=== PATIENT | female | born 1965 | race Caucasian/White ===

== ENCOUNTER 2017-02-25 12:56 | Inpatient (IN) | payer MEDICARE ==
[~2017-02-25] VITALS: Ht 157.5 cm; Wt 92.5 kg
--- NOTE | ~2017-02-25 | TEE ---
PATIENT:EMERSON TUTTLE MEDICAL RECORD: [id number] LOCATION:[place] [address] AGE OF PATIENT: 51 ADMISSION DATE: 02/26/17 SEX: F REFERRING PHYSICIAN: INTERPRETING PHYSICIAN: LUIS F PEÑA MD TRANSESOPHAGEAL ECHOCARDIOGRAM RICHARD CHARGE INDICATIONS: PREMEDICATIONS: PATIENT'S RESPONSE PROCEDURE DOPPLER MEASUREMENTS: LVIT LA PA RA LVOT RVOT Asc. Ao AV Gradient Peak AV Mean AV Area MV Gradient Peak MV Mean MV Area INTERPRETATION: Doppler: 2-D: COLOR FLOW DOPPLER NORMAL SALINE STUDY: MISCELLANOUS: DIAGNOSIS: PLAN: Batteryman:4 Dr. Peña Barrer And Tacker: 2 CAROLINE PETE COMMENTS: MARIAA PATIENT DATE OF SERVICE: 02/27/2017 PROCEDURE: Transesophageal echocardiogram. FINDINGS: 1. The left atrium is normal size, normal function. 2. The left ventricle is hyperdynamic. He has ejection fraction of 70% to 75%. 3. The right ventricular structures appeared to be normal size, normal function. TRANSESOPHAGEAL ECHOCARDIOGRAM REPORT [id number] EMERSON TUTTLE 4. The right atrium is normal size, normal function. 5. The aortic valve is trileaflet structure and normal. 6. The pulmonic valve is demonstrated to be normal in structure and function. 7. Left ventricular outflow tract is normal function. 8. The pericardium demonstrates no evidence of pericardial effusion. It is very distinct either moderate or band or possibly a pacer artifact in the RV. CONCLUSION: Normal transesophageal echocardiogram. TRANSINT:[id number] Voice Confirmation ID: [id number] DOCUMENT ID: [id number] 03/13/2017 Edited to correct date of service, LUIS F Elliott MD CC: [id number] DICTATION DATE: 03/03/17 08 ENTERPRISE APPLICATION DEVELOPER: 03/03/[address] [facility] [address] [place] [address]
--- NOTE | ~2017-02-25 | HEMODYNAMI ---
PATIENT:EMERSON TUTTLE MEDICAL RECORD: [id number] : 65 [facility] [id number] ADMISSION DATE: 02/25/17 Generatedon:02/26/201710:20 Patient name: EMERSON TUTTLE Patient #: [id number] SSN: : 1965 Date of study: 02/26/2017 Page: Of Hemodynamic Procedure Report Patient Data Patient Demographics Procedure consent was obtained First Name: EMERSON Gender: Female Last Name: MARRY : 1965 [facility] Initial: K Age: 51 year(s) Patient #: [id number] Race: Additional ID: [id number] Contact details [address]: [address] [place] [address] State: [place] City: [place] Zip code: [address] Past Medical History Allergies: No known allergies Admission Admission Data Admission Date: 02/25/2017 Admission Time: 16:13 Room #: 2119 Lab Results Lab Result Date: 02/25/2017 Lab Result Time: 20:35 Biochemistry Name Units Result Min Max BUN mg/dl 16 --(---*)-- 7 18 Creatinine mg/dl 0.8 --(-*--)-- 0.6 1.3 CBC Name Units Result Min Max Hematocrit % 38.5 *-(----)-- 42 54 Hemoglobin g/dl 13.1 -*(----)-- 13.5 17.5 Procedure Procedure Types Cath Procedure Diagnostic Procedure LHC LHC w/Coronaries Miscellaneous Procedures Moderate Sedation up to 30 minutes Procedure Description Procedure Date Procedure Date: 02/26/2017 Procedure Start Time: 9:54 Procedure End Time: 10:20 Procedure Staff Name Function Bay Sal MD Performing Physician Topher Contreras RT Scrub Jocelyn Pastrana RT Scrub Yesenia Baron RN Nurse Gareth Hardy RT Monitor Tiffanie Turcios RT Monitor Procedure Data Cath Procedure Fluoroscopy Diagnostic fluoroscopy Total fluoroscopy Time: 2.3 time: 2.3 min min Diagnostic fluoroscopy Total fluoroscopy dose: 547 dose: 547 mGy mGy Contrast Material Contrast Material Type Amount (ml) Isovue 300 39 Entry Location Entry Primary Successful Side Size Upsize Upsize Entry Closure Succes sful Closure Location (Fr) 1 (Fr) 2 (Fr) Remarks Device Remarks Femoral Right 5 Fr Exoseal artery Estimated blood loss: 5 ml Diagnostic catheters Device Type Used For End Catheter Placement Cordis 5Fr JL 4.0 Procedure Catheter (MP) Cordis 5Fr 3DRC Catheter Procedure (MP) Cordis 5Fr Pigtail LV Angiography Catheter (MP) Procedure Complications No complications Procedure Medications Medication Administration Route Dosage 0.9% NaCl I.V. 100 ml/hr Oxygen NC 3 l/min Versed I.V. 2 mg Fentanyl I.V. 25 mcg Versed I.V. 1 mg Fentanyl I.V. 50 mcg Hemodynamics Rest HGB: 13.1 (g/dl) Heart Rate: 87 (bpm) Pressure Samples Time Site Value (mmHg) Purpose Heart Use Rate(bpm) 10:11 LV 144/33,36 EDP 85 10:12 LV 148/17,23 EDP 85 10:13 AO 128/73(99) Pullback 86 10:13 LV 126/9,10 Pullback 86 Gradients Valve Time Site 1 Site 2 Mean SEP/DFP Peak To Heart Use (mmHg) (sec/min) Peak Rate (mmHg) (bpm) Aortic 10:13 LV AO 0 86 126/9,10 128/73(99) Calculations Valve P-P Mean Valve Index Valve Source Name Gradient Area Flow (cm2) Aortic 0 0 Snapshots Pre Cath Intra NCS Post Cath Vital Signs Time Heart Resp SPO2 etCO2 PC4cqha NIBP (mmHg) Rhythm Pain Sedation Rate (ipm) (%) (mmHg) (mmHg) Status Level (bpm) 9:39:31 87 17 100 0 0 134/76(112) NSR 0 (11) 10(A) , No pain 9:43:43 87 15 100 0 0 135/69(96) NSR 0 (11) 10(A) , No pain 9:47:53 86 16 100 0 0 127/74(100) NSR 0 (11) 10(A) , No pain 9:52:00 86 19 97 0 0 129/73(104) NSR 0 (11) 9(A) , No pain 9:56:10 90 16 98 0 0 126/72(94) NSR 0 (11) 9(A) , No pain 10:00:16 84 17 98 0 0 119/78(92) NSR 0 (11) 9(A) , No pain 10:04:18 86 15 96 0 0 129/83(117) NSR 0 (11) 9(A) , No pain 10:08:26 83 17 98 0 0 129/77(105) NSR 0 (11) 9(A) , No pain 10:12:46 84 16 97 0 0 125/74(98) NSR 0 (11) 9(A) , No pain 10:16:54 83 20 99 0 0 124/72(102) NSR 0 (11) 10(A) , No pain Medications Time Medication Route Dose Verified Delivered Reason Notes Effective ness by by 9:37:43 0.9% NaCl I.V. 100 Yesenia Yesenia used for ml/hr Loraine Loraine residence leasing agent RN 9:37:52 Oxygen NC 3 Yesenia Yesenia used for l/min Loraine Loraine residence leasing agent RN 9:48:01 Versed I.V. 2 mg Bay Yesenia for [address] Loraine sedation RN 9:48:20 Fentanyl I.V. 25 Bay Yesenia for mcg [address] Loraine sedation RN 9:54:03 Versed I.V. 1 mg Bay Yesenia for [address] Loraine sedation RN 10:05:18 Fentanyl I.V. 50 Bay Yesneia for mcg [address] Loraine sedation drugless doctor Log Time Note 9:21:21 Topher VANCE(R) sent for patient. Start room use. 9:21:26 Time tracking: Regular hours 9:21:34 Plan of Care:Hemodynamics will remain stable., Cardiac rhythm will remain stable., Comfort level will be maintained., Respiratory function will remain adequate., Patient/ family verbilizes understanding of procedure., Procedure tolerated without complication., Recovers from procedure without complications.. 9:29:20 Patient received from Med II to CCL 1 Alert and oriented. Tansferred to table in Supine position. 9:30:02 Warm blankets applied, and kade hugger turned on for patient comfort. 9:30:02 Correct patient and procedure confirmed by team. 9:30:06 Signed procedure consent form obtained from patient. 9:30:07 ECG and BP/O2 sat monitors applied to patient. 9:30:16 H&P Date Dictated: 02/25/2017 Within 30 days and on chart., H&P Addendum completed by physician on day of procedure. (MUST COMPLETE FOR ALL OUTPATIENTS). 9:30:18 Pre-procedure instructions explained to patient. 9:30:18 Pre-op teaching completed and patient verbalized understanding. 9:31:49 Family in patients room. 9:31:50 Patient NPO since Midnight. 9:34:18 Patient allergic to No known allergies 9:34:21 Is the patient allergic to Iodine/contrast media? No. 9:34:23 Is patient on blood thinner?Yes 9:34:25 ACC The patient was administered the following blood thiners within the last 24 hours: ACCPlavix 9:34:27 Patient diabetic? No. 9:34:31 Previous problem with sedation/anesthesia? No ? 9:34:32 Snore? No 9:34:33 Sleep apnea? No 9:34:34 Deviated septum? No 9:34:35 Opens mouth fully? Yes 9:34:35 Sticks out tongue? Yes 9:34:37 Airway obstruction? No ? 9:34:39 Dentures? No ? 9:35:16 Patient pain scale 0/10 ?. 9:35:22 IV patent on arrival in left hand with 0.9% NaCl at O. 9:36:14 Pre procedure: right dorsailis pedis pulse 2+ Normal; easily identifiable; not easily obliterated 9:37:43 0.9% NaCl 100 ml/hr I.V. was administered by Yesenia Baron RN; used for procedure; 9:37:52 Oxygen 3 l/min NC was administered by Yesenia Baron RN; used for procedure; 9:37:54 Vital chart was started 9:38:56 Lab Result : Creatinine 0.8 mg/dl 9:38:56 Lab Result : BUN 16 mg/dl 9:38:56 Lab Result : Hemoglobin 13.1 g/dl 9:38:56 Lab Result : Hematocrit 38.5 % 9:38:59 Lab results completed and on chart. 9:39:02 Right groin area was prepped with chlora-prep and draped in sterile fashion 9:39:02 Sharps counted by scrub and verified by R.N. 9:39:03 Alarms reviewed by R. N. 9:39:10 Use device set Femoral Dx 9:39:11 Acist Syringe opened to sterile field. 9:39:12 Bag Decanter opened to sterile field. 9:39:13 Tegaderm 4 x 4 opened to sterile field. 9:39:14 Acist Manifold opened to sterile field. 9:39:14 Acist Hand Control opened to sterile field. 9:39:15 Medline Cath Pack opened to sterile field. 9:39:16 Terumo 5Fr Algona Sheath opened to sterile field. 9:39:16 St Eduardo 260cm J .035 wire opened to sterile field. 9:39:17 Diagnostic Infinity 5Fr Multipack catheter opened to sterile field. 9:39:22 Baseline sample Acquired. 9:39:27 Rhythm: sinus rhythm 9:39:29 Full Disclosure recording started 9:42:52 Cook 4Fr Micropuncture ([id number]) opened to sterile field. 9:46:08 Physician arrived 9:46:09 --------ALL STOP TIME OUT------ 9:46:09 Final Timeout: patient, procedure, and site verified with staff and physician. All members of the team are in agreement. 9:46:11 Right groin site verified by team. 9:46:14 Physical assessment completed. ASA score P 2 - A patient with mild systemic disease as per Bay Sal MD. 9:46:16 Sedation plan: IV Moderate Sedation Versed, Fentanyl 9:48:01 Versed 2 mg I.V. was administered by Yesenia Baron RN; for sedation; 9:48:20 Fentanyl 25 mcg I.V. was administered by Yesenia Baron RN; for sedation; 9:49:57 Zero performed for pressure channel P1 9:50:00 Zero performed for pressure channel P1 9:54:03 Versed 1 mg I.V. was administered by Yesenia Baron RN; for sedation; 9:54:49 Procedure started. 9:54:52 Local anesthetic to right femoral artery with Lidocaine 2% by Bay Sal MD.INITIAL ACCESS ONLY 10:01:39 A 5 Fr sheath was inserted into the Right Femoral artery 10:01:45 A Cordis 5Fr JL 4.0 Catheter (MP) was advanced over the wire and used for Procedure. 10:03:51 LCA angiography performed. 10:05:18 Fentanyl 50 mcg I.V. was administered by Yesenia Baron RN; for sedation; 10:05:23 Catheter exchanged over wire. 10:06:51 A Cordis 5Fr 3DRC Catheter (MP) was advanced over the wire and used for Procedure. 10:09:19 Catheter exchanged over wire. 10:10:30 A Cordis 5Fr Pigtail Catheter (MP) was advanced over the wire and used for LV Angiography. 10:11:47 Zero performed for pressure channel P1 10:12:08 LV gram done using THOMPSON 10:12:10 LV hemodynamics recorded. 10:12:14 Injector settings: Ml/sec: 12, Volume: 8, 10:13:29 Catheter removed. 10:13:49 Sheath removed intact; hemostasis achieved with Exoseal to the Right Femoral artery. 10:13:57 Cordis 5Fr Exoseal opened to sterile field. 10:14:02 Procedure ended.(Physican Out) 10:14:09 Fluoroscopy time 02.30 minutes. 10:14:29 Flurop Dose total: 547 10:14:29 Fluoroscopy dose: 547 mGy 10:14:33 Contrast amount:Isovue 300 39ml. 10:14:35 Sharps counted by scrub and verified by R.N. 10:14:36 Insertion/operative site no bleeding no hematoma. 10:14:39 Post-op/insertion site Right Femoral artery dressed using a 4 x 4 and Tegaderm. 10:14:42 Post right femoral artery:stable, clean and dry 10:14:43 Post Procedure Pulses reassessed and unchanged 10:14:47 Post-procedure physical assessment completed. ASA score P 2 - A patient with mild systemic disease as per Bay Sal MD. 10:14:50 Post procedure rhythm: unchanged. 10:14:53 Estimated blood loss: 5 ml 10:14:55 Post procedure instruction explained to patient.Patient verbalizes understanding. 10:14:55 Patient needs reinforcement of post procedure teaching. 10:15:57 Procedure type changed to Cath procedure, Diagnostic procedure, LHC, LHC w/Coronaries, Miscellaneous Procedures, Moderate Sedation up to 30 minutes 10:16:02 Procedure Complication : No complications 10:16:55 Procedure and supply charges have been captured, reviewed, submitted and are correct. 10:16:57 See physician's report for complete and final results. 10:20:20 Vital chart was stopped 10:20:23 Report given to PCU. 10:20:33 Patient transfered to PCU with Bed. 10:20:35 Procedure ended. 10:20:35 Full Disclosure recording stopped 10:20:39 End room use (Document Last) Device Usage Item Name Manufacture Quantity Catalog Hospital Part Current Minimal Lot# / Number Charge Number Stock Stock Serial# Code Acist Syringe Acist 1 93752 378721 548061 935240 20 Medical Systems FidusNet Bag Decanter Microtek 1 2002S 201798 75846 447143 5 [employer] Inc. Tegaderm 4 x 3M 1 1626W 369974 671668 810081 5 4 Acist Acist 1 78068 230748 124767 946124 5 Manifold Medical Systems Inc Acist Hand Acist 1 92002 886725 055596 672374 5 Control Medical Systems Inc Medline Cath Cardinal 1 [id number] 523043 81582 621588 5 Pack Health Terumo 5Fr Terumo 1 CHW721 136439 077339 985752 [address] Eduardo 1 263906 296658 689239 866669 30 J .035 wire Diagnostic Cardinal 1 [id number] 247990 09972 263456 30 Infinity 5Fr Health Multipack catheter Cook 4Fr Cook [facility] 1 [id number] 015800 526076 811837 5 Micropuncture ([id number]) Cordis 5Fr JL Cardinal 1 328395 5 4.0 Catheter Health (MP) Cordis 5Fr Cardinal 1 434055 5 3DRC Catheter Health (MP) Cordis 5Fr Cardinal 1 008082 5 Pigtail Health Catheter (MP) Cordis 5Fr Cardinal 1 EX500 802617 327270 164095 10 [employer] Signature Audit [place] Stage Time Signature Unsigned Intra-Procedure 02/26/2017 Tiffanie 10:20:48 AM Counts RT(R) Signatures Monitor : Gareth Hardy RT Signature : Date : Time : Monitor : Tiffanie Signature : Counts RT Date : Time : [address] [place] [address]
[~2017-02-25 12:56] MED LIST: ASPIRIN81 MG PO; BRILINTA90 MG PO; CYMBALTA30 MG PO; FLAGYL500 MG PO; K-DUR20 MEQ PO; LISINOPRIL-HCTZ1 TA2; LISINOPRIL-HCTZ1 TA2 PO; LYRICA50 MG PO; NICODERM C1 PATCH .3 TRANSDERM; NORCO 10/325 TA1 TA1 PO; OMEPRAZOLE40 MG; OMEPRAZOLE40 MG PO
[2017-02-25 13:32] LABS: BASOPHILS 0.1 % (0-2); EOSINOPHILS 2.3 % (0-7); HEMATOCRIT 38.1 % (36.0-48.0); HEMOGLOBIN 13.1 g/dL (12-16); IMMATURE GRANULOCYTES 0.1 % (0-5); LYMPHOCYTES 39.5 % (15-50); MCH 29.9 pg (26.0-34.0); MCHC 34.4 g/dL (31.0-37.0); MEAN PLATELET VOLUME 9.2 fL (7.4-10.4); MONOCYTES 7.4 % (2-11); NEUTROPHILS 50.6 % (40-80); PLATELET COUNT 361 10x3/uL (130-400); RBC 4.38 10x6/uL (4.00-5.40); RDW 13.6 % (11.5-14.5); WBC 8.7 10x3/uL (4.8-10.8)
[2017-02-25 13:50] LABS: ALBUMIN 3.4 g/dL (3.4-5.0); ALKALINE PHOSPHATASE 99 U/L (46-116); ALT (SGPT) 19 U/L (10-68); BILIRUBIN - TOTAL 0.27 mg/dL (0.2-1.3); CALC OSMOLALITY 278 mosm/kg (275-300); CALCIUM 8.6 mg/dL (8.5-10.1); CARBON DIOXIDE 24.3 mmol/L (21.0-32.0); CHLORIDE - SERUM 103 mmol/L (98-107); CREATININE - SERUM 0.8 mg/dL (0.6-1.3); GLUCOSE 117 mg/dL (74-106); POTASSIUM - SERUM 3.4 mmol/L (3.5-5.1); PROTEIN - SERUM 7.1 g/dL (6.4-8.2); SODIUM 139 mmol/L (136-145); UREA NITROGEN 13 mg/dL (7-18); eGFR NON AFRICAN AMERICAN 80 mL/min (90-120)
[2017-02-25 14:03] LABS: CKMB 0.3 U/L (0.0-3.6); CREATINE KINASE 68 UL (21-215); TROPONIN-I 0.053 ng/mL (0.000-0.060)
[2017-02-25 16:49] VITALS: BP 147/85; BMI 29.3
--- NOTE | 2017-02-25 16:56 | NUR ---
PT TO ROOM ADMISSION COMPLETE. X3 FAMILY MEMBERS ARE AT BEDSIDE. PT DENIESNEEDS AT THIS TIME. PT IS NSR ON TELE 70 BPM. PIV NS FLUIDS RUNNING TO LEFT HAND WITHOUT ANY ISSUES. WILL CONT TO MONITOR
--- NOTE | 2017-02-25 18:28 | NUR ---
PT SITTING UP IN BED WATCHING TV DENIES NEEDS
[2017-02-25 19:00] VITALS: BP 147/85
--- NOTE | 2017-02-25 19:30 | NUR ---
CONSENTS SIGNED AND WITTNESSED FOR HEART CATH TO BE DONE IN AM. CONSENTS PLACED IN CHART, REMINDED PT OF NOTHING TO EAT OR DRINK AFTER MN.
[2017-02-25 20:41] LABS: BASOPHILS 0.1 % (0-2); EOSINOPHILS 2.5 % (0-7); HEMATOCRIT 38.5 % (36.0-48.0); HEMOGLOBIN 13.1 g/dL (12-16); IMMATURE GRANULOCYTES 0.2 % (0-5); LYMPHOCYTES 46.5 % (15-50); MCV 88.3 fL (80.0-100.0); MEAN PLATELET VOLUME 9.4 fL (7.4-10.4); MONOCYTES 8.6 % (2-11); NEUTROPHILS 42.1 % (40-80); PLATELET COUNT 356 10x3/uL (130-400); RBC 4.36 10x6/uL (4.00-5.40); RDW 13.6 % (11.5-14.5); WBC 9.6 10x3/uL (4.8-10.8)
[2017-02-25 20:51] LABS: CALC OSMOLALITY 278 mosm/kg (275-300); CALCIUM 8.6 mg/dL (8.5-10.1); CARBON DIOXIDE 29.3 mmol/L (21.0-32.0); CHLORIDE - SERUM 102 mmol/L (98-107); CREATININE - SERUM 0.8 mg/dL (0.6-1.3); GLUCOSE 99 mg/dL (74-106); POTASSIUM - SERUM 3.1 mmol/L (3.5-5.1); SODIUM 139 mmol/L (136-145); UREA NITROGEN 16 mg/dL (7-18); eGFR NON AFRICAN AMERICAN 80 mL/min (90-120)
[2017-02-26] VITALS (11 sets, daily range): BP systolic 91–129; BP diastolic 49–69; BMI 32.8
--- NOTE | 2017-02-26 01:50 | NUR ---
RESTING WITH EYES CLOSED, RESPERATIONS EVEN, NO S/S DISTRESS NOTED.
--- NOTE | 2017-02-26 02:53 | NUR ---
CALL LIGHT IN REACH. WILL CONTINUE WITH PLAN OF CARE. WILL CONTINUE TO MONITOR.
--- NOTE | 2017-02-26 14:01 | NUR ---
1350 PATIENT CO CHEST PAIN @ NUMBER OF 10. MONITOR SHOWS SR @ 94. NO DIAPHORESIS NOTED. PT DID NOT HAVE O2 ON. RESP WITH EASE. WARM AND DRY. DR. PEÑA NOTIFIED. AND ORDERS RECEIVED. NTG SL GIVEN. EKG DONE ORDERED. ABNORMAL EKG. DR. PEÑA CALLED AND ORDERS RECEIVED. HOUSE SUP NOTIFIED FOR CVICU BED.
--- NOTE | 2017-02-26 14:32 | NUR ---
REPORT CALLED TO Alexander CUEVA RN IN CVICU.
--- NOTE | 2017-02-26 14:50 | NUR ---
REC'D PT VIA BED FROM PCU, PT AAOX4, C/O CHEST PAIN RATED "6/10 PRESSURE ON CHEST, NITRO PATCH RELIEVED SOME PAIN." NO FAMILY PRESENT, WILL CONTINUE TO MONITOR PT.
--- NOTE | 2017-02-26 15:04 | NUR ---
TRANSFER PT TO CVICU #2 VIA BED.
[2017-02-26 15:13] LABS: HEMATOCRIT 35.2 % (36.0-48.0); HEMOGLOBIN 11.8 g/dL (12-16); MCH 29.6 pg (26.0-34.0); MCHC 33.5 g/dL (31.0-37.0); MCV 88.4 fL (80.0-100.0); MEAN PLATELET VOLUME 9.3 fL (7.4-10.4); RBC 3.98 10x6/uL (4.00-5.40); RDW 13.9 % (11.5-14.5); WBC 8.1 10x3/uL (4.8-10.8)
[2017-02-26 15:22] LABS: APTT 30.8 SECONDS (22.8-39.4); INR 1.02 (0.85-1.17); PROTIME 13.3 SECONDS (11.6-15.0)
[2017-02-26 15:37] LABS: CKMB 0.3 U/L (0.0-3.6); CREATINE KINASE 56 UL (21-215); TROPONIN-I 0.035 ng/mL (0.000-0.060)
--- NOTE | 2017-02-26 16:18 | NUR ---
DR. LEROY AT THE BEDSIDE SPEAKING WITH PT AND PTS FAMILY, ALL QUESTIONS ANSWERED, VSS, WILL CONTINUE TO MONITOR PT.
[2017-02-26 17:11] LABS: HEMOGLOBIN A1C 5.8 % (4.8-6.0)
[2017-02-26 17:46] LABS: ALBUMIN 3.1 g/dL (3.4-5.0); ALKALINE PHOSPHATASE 91 U/L (46-116); ALT (SGPT) 18 U/L (10-68); BILIRUBIN - TOTAL 0.23 mg/dL (0.2-1.3); CALC OSMOLALITY 276 mosm/kg (275-300); CALCIUM 8.2 mg/dL (8.5-10.1); CHLORIDE - SERUM 105 mmol/L (98-107); CHOLESTEROL, TOTAL 284 mg/dL (0-200); CREATININE - SERUM 0.7 mg/dL (0.6-1.3); GLUCOSE 118 mg/dL (74-106); PHOSPHOROUS 4.1 mg/dL (2.5-4.9); POTASSIUM - SERUM 3.7 mmol/L (3.5-5.1); PROTEIN - SERUM 6.4 g/dL (6.4-8.2); SODIUM 138 mmol/L (136-145); T4 THYROXIN - FREE 0.81 ng/dL (0.76-1.46); THYROID STIMULATING HORMONE 1.02 uIU/mL (0.36-3.74); UREA NITROGEN 12 mg/dL (7-18); URIC ACID 3.8 mg/dL (2.6-7.2); eGFR NON AFRICAN AMERICAN > 90 mL/min (90-120)
[2017-02-26 17:53] LABS: PLT FUNCT.(P2Y12) PLAVIX 311 PRU (194-418)
--- NOTE | 2017-02-26 19:08 | NUR ---
DR. LEROY CALLED, ORDERS RECEIVED TO D/C HEPARIN GTT AT 0300.
--- NOTE | 2017-02-26 19:42 | NUR ---
REPORT RECIEVED. ASSESSMENT COMPLETE PER FLOW SHEET. VSS. PT AWAKE ALERT ORIENTED X3 DENIES CP OR GENERALIZED PAIN. GIVEN A COKE PER REQUEST. DENIES FURTHER NEEDS. O2 VIA NC 2L O2 SAT 98% RR 16 NON LABORED BILAT LUNGS CLEAR. HEART S1S2 HR 74 NSR. BP 102/54. BS ACTIVE X4. ABD SOFT NON TENDER. R GROIN DRSG CDI. NO HEMATOMA PRESENT. BILAT PEDAL PULSES PALP +2 BILAT RADIAL PULSES PALP +2. DENEIS NEEDS. VSS. WILL CONTINUE ALEXI ONITOR
[2017-02-26 20:01] LABS: COLD SCREEN @ 4 DEGREES NEGATIVE (NEGATIVE); COLD SCREEN ROOM TEMP NEGATIVE (NEGATIVE)
--- NOTE | 2017-02-26 21:00 | NUR ---
FAMILY AT BEDSIDE. GIVEN UPDATE.
[2017-02-26 22:09] LABS: CKMB 0.2 U/L (0.0-3.6); CREATINE KINASE 53 UL (21-215)
--- NOTE | 2017-02-26 23:20 | NUR ---
REASSESSMENT COMPLETE PER FLOW SHEET. VSS. PT SLEEPING COMFORTABLY WILL CONTINUE TO MONITOR
[2017-02-27] VITALS (41 sets, daily range): BP systolic 95–139; BP diastolic 50–72; Ht 157.5 cm; Wt 92.5 kg
--- NOTE | 2017-02-27 01:16 | NUR ---
OOB TO BR 200 CC ARAM URINE NOTED. VSS WILL CONTNIUE TO MONITOR
[2017-02-27 03:11] LABS: HEMATOCRIT 33.8 % (36.0-48.0); HEMOGLOBIN 11.3 g/dL (12-16); MCH 29.7 pg (26.0-34.0); MCHC 33.4 g/dL (31.0-37.0); MCV 88.9 fL (80.0-100.0); MEAN PLATELET VOLUME 9.4 fL (7.4-10.4); RBC 3.8 10x6/uL (4.00-5.40); RDW 13.9 % (11.5-14.5); WBC 8.3 10x3/uL (4.8-10.8)
--- NOTE | 2017-02-27 03:15 | NUR ---
REASSESSMENT COMPLETE PER FLOW SHEET. VSS. NO NEW CHANGES. WILL CONTINUE TO MONITOR
[2017-02-27 03:37] LABS: CREATINE KINASE 48 UL (21-215); TROPONIN-I 0.023 ng/mL (0.000-0.060)
--- NOTE | 2017-02-27 05:00 | NUR ---
COMPLETE BB LINEN CHANGE ADM AND PREPPED.
[2017-02-27 05:59] LABS: APPEARANCE CLEAR (CLEAR); BILIRUBIN NEGATIVE (NEGATIVE); COLOR YELLOW (YELLOW); GLUCOSE NEGATIVE (NEGATIVE); KETONE NEGATIVE (NEGATIVE); LEUKOCYTE ESTERASE NEGATIVE (NEGATIVE); NITRITE NEGATIVE (NEGATIVE); PROTEIN NEGATIVE (NEGATIVE); SPECIFIC GRAVITY 1.015 (1.005-1.020); UROBILINOGEN NORMAL (NORMAL)
--- NOTE | 2017-02-27 06:35 | NUR ---
DR QUINTANA AT BEDSIDE. VSS TO OR
--- NOTE | 2017-02-27 07:00 | NUR ---
PT NOTED TO BE GONE TO OR.
--- NOTE | 2017-02-27 08:00 | NUR ---
PERIPHERAL PULSE NOT CHECKED DUE TO PT BEING IN OR.
[2017-02-27 08:23] LABS: PLT FUNCT.(P2Y12) PLAVIX 325 PRU (194-418)
[2017-02-27 10:18] LABS: HEPATITIS C ANTIBODY <0.1 (0.0-0.9)
[2017-02-27 14:33] LABS: HEMATOCRIT 29.5 % (36.0-48.0); HEMOGLOBIN 10.1 g/dL (12-16); MCHC 34.2 g/dL (31.0-37.0); MCV 87.5 fL (80.0-100.0); MEAN PLATELET VOLUME 9.5 fL (7.4-10.4); RBC 3.37 10x6/uL (4.00-5.40); RDW 13.8 % (11.5-14.5)
[2017-02-27 14:51] LABS: PROTIME 15.5 SECONDS (11.6-15.0)
--- NOTE | 2017-02-27 14:55 | NUR ---
RECEIVED TO ROOM CV05 VIA BED WITH HEART TEAM AT BEDSIDE. PLACED ON AGRICULTURAL PILOT.
[2017-02-27 14:59] LABS: CALC OSMOLALITY 290 mosm/kg (275-300); CALCIUM 7.3 mg/dL (8.5-10.1); CARBON DIOXIDE 24.6 mmol/L (21.0-32.0); CHLORIDE - SERUM 110 mmol/L (98-107); CREATININE - SERUM 0.7 mg/dL (0.6-1.3); GLUCOSE 153 mg/dL (74-106); POTASSIUM - SERUM 3.9 mmol/L (3.5-5.1); SODIUM 145 mmol/L (136-145); UREA NITROGEN 11 mg/dL (7-18); eGFR NON AFRICAN AMERICAN > 90 mL/min (90-120)
[2017-02-27 15:04] LABS: APTT 29.7 SECONDS (22.8-39.4); INR 1.24 (0.85-1.17)
--- NOTE | 2017-02-27 15:45 | NUR ---
DR. LEROY UPDATING FAMILY AT BEDSIDE. ALL CURRENT QUESTIONS ANSWERED.
--- NOTE | 2017-02-27 17:40 | NUR ---
VENT CHANGES PER R.T.
--- NOTE | 2017-02-27 18:53 | NUR ---
UPDATE GIVEN TO DR. LEROY. NO CHANGES TO REPORT AT THIS TIME.
--- NOTE | 2017-02-27 19:05 | NUR ---
RECEIVED CARE OF PT, ASSESSMENT PER FLOWSHEET. PT AROUSES TO VOICE, FOLLOWS COMMANDS, ON 40% FIO2 SIMV SETTING ON VENT, 7.0 ETT, 21 AT LIP, OGT TO LIWS WITH YELLOW LIQUID IN TUBING, PLACEMENT VERIFIED WITH AUSCULTATION OF SMALL AIR BOLUS, CRACKLES AUSCULTATED BILATERALLY WITH DIM BASES, HR PACED ON CM AT A RATE OF 100, TPM WIRES SECURED, MIDSTERNAL AND SUBSTERNAL DRESSINGS CDI, CT X 3 TO 20 OF SXN, NO AIR LEAKS NOTED, BINDER NOTED TO BE IN PLACE. PPP, ALL LINES FLUSHED AND ZEROED, GTT'S PER FLOWSHEET, CRITICORE GERARDO PATENT WITH ARAM URINE IN TUBING, RT LEG WRAPPED IN COBAN FROM GROIN TO ANKLE WITH DINA X 2 TO BULB SUCTION. PT POSITIONED FOR COMFORT, ORAL CARE PROVIDED, WILL MONITOR 1:1.
--- NOTE | 2017-02-27 21:09 | NUR ---
PT FATHER CALLED, PASSWORD PROVIDED, UPDATE GIVEN, ALL QUESTIONS ANSWERED.
--- NOTE | 2017-02-27 21:10 | NUR ---
VENT CHANGED TO CPAP SETTING PER RT, PT TOLERATED WITHOUT DIFFICULTY, BREATHING EVEN AND UNLABORED.
--- NOTE | 2017-02-27 21:55 | NUR ---
PT EXTUBATED TO 4L NC, OGT D/C'D WITH TIP INTACT, PT TOLERATED WELL, VSS. 97% ON 4L NC.
--- NOTE | 2017-02-27 23:10 | NUR ---
DR LEROY CALLED REGARDING CHANGE IN PT STATUS, NOTIFIED REGARDING SMALL AIR LEAK TO POST CT AND OCC PVC'S ON CM, NO ORDERS RECEIVED AT THIS TIME.
[2017-02-28] VITALS (92 sets, daily range): BP systolic 94–131; BP diastolic 42–86
--- NOTE | 2017-02-28 01:10 | NUR ---
REPOSITIONED PT FOR COMFORT SUPPORTED WITH PILLOWS, PULLING AROUND 750 ON IS WITH GOOD INSPIRATORY EFFORT, PRODUCTIVE COUGH NOTED, SPUTUM NOT SEEN, VSS, CONT 1:1 CARE.
--- NOTE | 2017-02-28 03:00 | NUR ---
REASSESSMENT PER FLOWSHEET, PT POSITIONED FOR COMFORT, PULLING AROUND 500 ON IS WITH GOOD INSPIRATORY EFFORT-WILL CONT TO ENCOURAGE, CONT 1:1 CARE.
--- NOTE | 2017-02-28 05:50 | NUR ---
NO VISITORS PRESENT AT THIS TIME, CONT 1:1 CARE.
[2017-02-28 06:17] LABS: HEMATOCRIT 25.1 % (36.0-48.0); HEMOGLOBIN 8.6 g/dL (12-16); MCH 30.1 pg (26.0-34.0); MCHC 34.3 g/dL (31.0-37.0); MCV 87.8 fL (80.0-100.0); MEAN PLATELET VOLUME 9.7 fL (7.4-10.4); RBC 2.86 10x6/uL (4.00-5.40); RDW 13.8 % (11.5-14.5); WBC 16.7 10x3/uL (4.8-10.8)
[2017-02-28 06:28] LABS: ALBUMIN 2.6 g/dL (3.4-5.0); ALKALINE PHOSPHATASE 56 U/L (46-116); CALC OSMOLALITY 270 mosm/kg (275-300); CARBON DIOXIDE 25.1 mmol/L (21.0-32.0); CHLORIDE - SERUM 102 mmol/L (98-107); CREATININE - SERUM 0.6 mg/dL (0.6-1.3); GLUCOSE 127 mg/dL (74-106); POTASSIUM - SERUM 4.3 mmol/L (3.5-5.1); SODIUM 135 mmol/L (136-145); UREA NITROGEN 11 mg/dL (7-18); eGFR NON AFRICAN AMERICAN > 90 mL/min (90-120)
[2017-02-28 06:30] LABS: ALT (SGPT) 47 U/L (10-68)
[2017-02-28 06:31] LABS: CALCIUM 6.7 mg/dL (8.5-10.1)
--- NOTE | 2017-02-28 07:32 | NUR ---
DR LEROY CALLED REGARDING DECREASED BP, ABG RESULTS REVIEWED, ORDERS RECEIVED.
--- NOTE | 2017-02-28 08:50 | NUR ---
RIGHT LEG AND PACEMAKER DRESSINGS CHANGED.
--- NOTE | 2017-02-28 11:40 | NUR ---
DR. LEROY AT BEDSIDE. PACEMAKER ADJUSTED TO VVI 60. ABG OBTAINED PER R.T.
--- NOTE | 2017-02-28 12:16 | NUR ---
PRBC INFUSION STARTED. PT INSTRUCTED ON S/SX OF TRANSFUSION REACTION TO REPORT. TOLERATING WELL AT THIS TIME.
--- NOTE | 2017-02-28 12:51 | OP ---
PATIENT NAME: EMERSON TUTTLE MEDICAL RECORD: [id number] :65 LOCATION:[facility] ADMISSION DATE:02/26/17 SURGEON: DAVID LEROY MD DATE OF OPERATION: 02/27/2017 SURGEON: David Leroy MD. ANESTHESIA: General endotracheal, Dr. Velarde. OPERATIONS PERFORMED: Aortocoronary artery bypass utilizing left internal thoracic, left anterior descending, reverse saphenous vein segment to the first diagonal and reverse saphenous vein segment to the distal circumflex coronary artery. PREOPERATIVE DIAGNOSES: Intermediate coronary syndrome, severe occlusive coronary artery disease. POSTOPERATIVE DIAGNOSES: Intermediate coronary syndrome, severe occlusive coronary artery disease. INDICATION FOR OPERATION: Unstable angina. FINDINGS OF THE OPERATION: The left internal thoracic and greater saphenous vein were good conduits for grafting. The target vessels were of adequate caliber, although diffusely diseased. ESTIMATED BLOOD LOSS: Cell Saver was used. DESCRIPTION OF PROCEDURE: After informed consent, adequate preoperative medication and evaluation, the patient was brought to the operating room, placed on the table in the supine position. After induction of general endotracheal anesthesia and application of appropriate monitoring devices, the chest, neck, abdomen, and both legs were prepped and draped in a sterile field utilizing Betadine scrub, alcohol, and Betadine solution. A Betadine-impregnated drape was also used. The greater saphenous vein was removed from the right thigh and prepared for reverse saphenous vein grafting. Leg was closed over drains utilizing 3-0 Vicryl and skin castro. A median sternotomy incision was used and dissection carried down the fascia. Hemostasis maintained with electrocautery. Sternum was divided. Innominate vein was identified and protected. Left internal thoracic was taken down and prepared for grafting. The patient was given a calculated dose of heparin, cannulated in a standard fashion utilizing 1 aortic, 1 two-stage cannula in the atrium and inferior vena cava. The patient was placed on cardiopulmonary bypass, cooled to 32 degrees centigrade. A cross clamp was placed just proximal to the aortic cannula and the patient was given cardioplegic solution through the aortic root. The patient was given a warm induction and cold maintenance. The patient was given cold intermittent cardioplegic solution throughout the procedure through the graft, through the root or a combination of both. The first vessel to be grafted was the distal circumflex. It was grafted end-to-side utilizing a running 7-0 Prolene suture. The graft was measured back to the aorta and a proximal anastomosis fashioned utilizing running 6-0 Prolene suture. Next, the first diagonal was grafted end-to-side utilizing a running 7-0 Prolene suture. The graft was then measured back to the aorta and a proximal anastomosis fashioned utilizing running 6-0 Prolene suture. Next, left internal thoracic was brought through the hole in pericardium, sutured left anterior descending OPERATIVE REPORT [id number] EMERSON TUTTLE end-to-side utilizing a running 8-0 Prolene suture. Pedicle was attached to epicardium with 6-0 Prolene suture. All maneuvers to remove trapped air were performed. The patient was given warm cardioplegic reperfusion and controlled reperfusion. The patient was rewarmed to 37 degrees centigrade. Two atrial and 2 ventricular pacing wires were placed on the heart and brought out through the epigastric area. The patient was weaned cardiopulmonary bypass. After being stable off bypass, she was given calculated dose of protamine to reverse the heparin. Hemostasis was achieved. A #40 right angle and #36 chest tubes were brought in through the epigastric area and placed in mediastinum. The chest was again irrigated. Instrument count and sponge count were correct times 2. Chest was closed in layers utilizing #7 wire on the sternum, #2 Vicryl in linea alba and pectoralis fascia. Subcutaneous tissue was approximated with 3-0 Vicryl and skin approximated with 3-0 subcuticular Vicryl. Sterile dressings were applied. The patient tolerated the procedure well and was transferred to cardiovascular recovery in stable condition. TRANSINT:[id number] Voice Confirmation ID: [id number] DOCUMENT ID: [id number] DAVID LEROY MD at 1251 CC: [id number] DICTATION DATE: 02/27/17 1458 OFFLINE EDITOR: 02/27/17 2104 ADM IN [place] [id number] [place] [address]
--- NOTE | 2017-02-28 16:11 | NUR ---
DR. LEROY NOTIFIED OF NEW ABG RESULTS AND CURRENT URINE OUTPUT LESS THAN 50 FOR 2 HOURS. NEW ORDERS RECEIVED.
--- NOTE | 2017-02-28 18:53 | NUR ---
ORAL CARE PERFORMED WITH PERIDEX ORDERED
--- NOTE | 2017-02-28 19:05 | NUR ---
RESUMED CARE OF PT, HR SR ON CM, TPM V-SENSING, DOBUTAMINE GTT INITIATED PER MD ORDER-WILL MONITOR FOR DESIRED EFFECT.
--- NOTE | 2017-02-28 21:06 | NUR ---
PT S.O. IN FOR VISITATION, UPDATE PROVIDED, ALL QUESTIONS ANSWERED, PT VISITING EASILY-NO APPARENT DISTRESS NOTED. VSS, CONT 1:1 CARE.
--- NOTE | 2017-02-28 21:30 | NUR ---
PT C/O NAUSEA, ZOFRAN 4 MG ADMINISTERED VIA SIVP PER PRN MD ORDER, WILL MONITOR FOR DESIRED EFFECT.
--- NOTE | 2017-02-28 23:00 | NUR ---
DR LEROY NOTIFIED REGARDING PT STATUS, PO2 LEVEL PER ABG'S, NO ORDERS RECEIVED AT THIS TIME, CONT POC AND 1:1 MONITORING.
[2017-03-01] VITALS (64 sets, daily range): BP systolic 94–135; BP diastolic 35–801
--- NOTE | 2017-03-01 00:10 | NUR ---
PT DOING IPPB PER RT AT THIS TIME, O2 SAT 95% ON MONITOR, TOLERATING WELL, ENCOURAGED TO TAKE DEEP BREATHS, WILL CONT TO MONITOR 1:1.
--- NOTE | 2017-03-01 03:05 | NUR ---
PT POSITIONED UP IN BED, PULLING AROUND 500 ON IS, ENCOURAGED TO COUGH-SMALL AMT OF BEYER SPUTUM EXPECTORATED. REMINDED TO BREATH SLOW AND DEEP, PT VERBALIZES UNDERSTANDING, WILL CONT TO MONITOR AND ENCOURAGE. RT LEG DRESSINGS CHANGED PER ORDER, WOUND EDGES WELL APPROXIMATED WITH JOSE.
--- NOTE | 2017-03-01 04:12 | NUR ---
ABG'S OBTAINED AND REVIEWED, PT PLACED ON 12L OXI PER RT, O2 SAT AT 93% ON MONITOR, WILL CONT 1:1 CARE AT THIS TIME AND MONITOR CLOSELY.
--- NOTE | 2017-03-01 04:55 | NUR ---
DR LEROY NOTIFIED REGARDING DECREASED O2 SAT AND ABG RESULTS, ORDERS RECEIVED.
--- NOTE | 2017-03-01 05:10 | NUR ---
DR REARDON NOTIFIED OF CONSULT, NOTIFIED REGARDING PT CONDITION, ORDERS RECEIVED.
[2017-03-01 06:19] LABS: HEMATOCRIT 28.3 % (36.0-48.0); HEMOGLOBIN 9.9 g/dL (12-16); MCH 30.4 pg (26.0-34.0); MCV 86.8 fL (80.0-100.0); MEAN PLATELET VOLUME 9.7 fL (7.4-10.4); RBC 3.26 10x6/uL (4.00-5.40); RDW 13.8 % (11.5-14.5)
--- NOTE | 2017-03-01 06:29 | NUR ---
DR REARDON CALLED REGARDING PT STATUS, UPDATED REQUESTED, NO FURTHER ORDERS AT THIS TIME.
[2017-03-01 06:35] LABS: ALBUMIN 3.2 g/dL (3.4-5.0); ALKALINE PHOSPHATASE 68 U/L (46-116); BILIRUBIN - TOTAL 0.71 mg/dL (0.2-1.3); CALC OSMOLALITY 270 mosm/kg (275-300); CALCIUM 7.3 mg/dL (8.5-10.1); CARBON DIOXIDE 27.9 mmol/L (21.0-32.0); CHLORIDE - SERUM 99 mmol/L (98-107); CREATININE - SERUM 0.6 mg/dL (0.6-1.3); GLUCOSE 132 mg/dL (74-106); POTASSIUM - SERUM 4.2 mmol/L (3.5-5.1); PROTEIN - SERUM 5.6 g/dL (6.4-8.2); SODIUM 135 mmol/L (136-145); UREA NITROGEN 10 mg/dL (7-18); eGFR NON AFRICAN AMERICAN > 90 mL/min (90-120)
[2017-03-01 06:36] LABS: ALT (SGPT) 34 U/L (10-68)
--- NOTE | 2017-03-01 09:10 | NUR ---
BREAK FROM BIPAP GIVEN. MEDS PER EMAR. ORAL CARE PROVIDED.
--- NOTE | 2017-03-01 09:15 | NUR ---
ORAL CARE DONE WITH PERIDEX
--- NOTE | 2017-03-01 09:50 | NUR ---
PLACED BACK ON BIPAP.
--- NOTE | 2017-03-01 11:15 | NUR ---
PT VERY ANXIOUS AND AGGITATED. BROTHER ALLOWED BACK TO VISIT FOR COMFORT.
--- NOTE | 2017-03-01 11:55 | NUR ---
BREAK FROM BIPAP GIVEN. ORAL CARE PROVIDED.
--- NOTE | 2017-03-01 13:00 | NUR ---
LINES DC'D WITH DR. LEROY. MANUAL PRESSURE APPLIED TO RIGHT IJ AND RIGHT RADIAL SITES TIMES 5-10 MINUTES. CLEAR DRESSINGS APPLIED. PT INSTRUCTED ON S/SX OF BLEEDING TO REPORT.
--- NOTE | 2017-03-01 14:30 | NUR ---
UP TO CHAIR PER P.T. BIPAP REMAINS IN PLACE.
--- NOTE | 2017-03-01 18:58 | NUR ---
ORAL CARE PERFORMED WITH PERIDEX ORDERED
--- NOTE | 2017-03-01 19:15 | NUR ---
REPORT RECVD. CARE ASSUMED. INITIAL ASSMNT COMPLETED. SEE FLOWSHEET FOR ALL FINDINGS. AWAKE AND AOX4. RESTING ON BIPAP AT 50% FIO2 LUNGS CTA, DIM IN BASES. SPO2 94% ON THE MONITOR. ST ON THE MONITOR. PULSES PALP X4. AFEBRILE. TEDS/SCDS ON. TEMP PM VVI 60, SENSING ONLY. STERNAL DRESSINGS INTACT. RIGHT LEG DRESSINGS CDI. ABD SOFT, BSA X4. BLADDER NON PALP. VOIDING NO DIFF. SALES CENTER MANAGER MOR[ROSELIA PROVIDING PAIN CONTROL. HOB UP. C/L AND SALES CENTER MANAGER IN REACH. CONT CURRENT POC.
--- NOTE | 2017-03-01 21:20 | NUR ---
HS MEDS GIVEN. ASSISTED BSC TO LINO NO DIFF. ON 13 LPM OXYMIZER FOR VISITATION. SPO2 92%. CONT CURRENT POC.
--- NOTE | 2017-03-01 23:15 | NUR ---
REASSESSMENT COMPLETED. SEE FLOWSHEET FOR ALL FINDINGS. AWAKE AND AOX4. RESTING ON BIPAP AT 50% FIO2 LUNGS CTA, DIM IN BASES. SPO2 94% ON THE MONITOR. ST ON THE MONITOR. PULSES PALP X4. AFEBRILE. TEDS/SCDS ON. TEMP PM VVI 60, SENSING ONLY. STERNAL DRESSINGS INTACT. RIGHT LEG DRESSINGS CDI. ABD SOFT, BSA X4. BLADDER NON PALP. VOIDING NO DIFF. WEBSPHERE ARCHITECT MOR[ROSELIA PROVIDING PAIN CONTROL. HOB UP. C/L AND WEBSPHERE ARCHITECT IN REACH. CONT CURRENT POC.
[2017-03-02] VITALS (23 sets, daily range): BP systolic 101–135; BP diastolic 48–801
--- NOTE | 2017-03-02 01:10 | NUR ---
ON BIPAP BREAK. ASSISTED TO BSC. VOIDING NO DIFF. MINIMAL ASSIST BACK TO BED. PLACED ON BIPAP. VSS. C/L AND OFFICE COORDINATOR IN REACH. CONT POC.
--- NOTE | 2017-03-02 03:15 | NUR ---
REASSESSMENT COMPLETED. SEE FLOWSHEET FOR ALL FINDINGS. AWAKE AND AOX4. RESTING ON BIPAP AT 50% FIO2 LUNGS CTA, DIM IN BASES. SPO2 94% ON THE MONITOR. ST ON THE MONITOR. PULSES PALP X4. AFEBRILE. TEDS/SCDS ON. TEMP PM VVI 60, SENSING ONLY. STERNAL DRESSINGS INTACT. RIGHT LEG DRESS CDI. ABD SOFT, BSA X4. BLADDER NON PALP. VOIDING NO DIFF. FRENCH DRAWER MOR[ROSELIA PROVIDING PAIN CONTROL. HOB UP. C/L AND FRENCH DRAWER IN REACH. CONT CURRENT POC.
[2017-03-02 06:48] LABS: INR 1.17 (0.85-1.17); PROTIME 14.8 SECONDS (11.6-15.0)
--- NOTE | 2017-03-02 07:00 | NUR ---
ASSESSMENT COMPLETE PER FLOWSHEET.
[2017-03-02 07:04] LABS: ALBUMIN 2.8 g/dL (3.4-5.0); ALKALINE PHOSPHATASE 77 U/L (46-116); ALT (SGPT) 32 U/L (10-68); BILIRUBIN - TOTAL 0.75 mg/dL (0.2-1.3); CALC OSMOLALITY 267 mosm/kg (275-300); CALCIUM 7.6 mg/dL (8.5-10.1); CARBON DIOXIDE 31.7 mmol/L (21.0-32.0); CHLORIDE - SERUM 96 mmol/L (98-107); CREATININE - SERUM 0.5 mg/dL (0.6-1.3); GLUCOSE 123 mg/dL (74-106); MAGNESIUM - SERUM 2.3 mg/dL (1.8-2.4); PHOSPHOROUS 1.6 mg/dL (2.5-4.9); POTASSIUM - SERUM 4.3 mmol/L (3.5-5.1); PRO BNP 3447 pg/mL (0-125); SODIUM 134 mmol/L (136-145); UREA NITROGEN 9 mg/dL (7-18); eGFR NON AFRICAN AMERICAN > 90 mL/min (90-120)
[2017-03-02 07:14] LABS: HEMATOCRIT 27.9 % (36.0-48.0); HEMOGLOBIN 9.5 g/dL (12-16); MCH 30.4 pg (26.0-34.0); MCHC 34.1 g/dL (31.0-37.0); MEAN PLATELET VOLUME 10.3 fL (7.4-10.4); RBC 3.13 10x6/uL (4.00-5.40); WBC 18.4 10x3/uL (4.8-10.8)
[2017-03-02 07:17] LABS: MCV 89.1 fL (80.0-100.0)
--- NOTE | 2017-03-02 09:00 | NUR ---
BATH GIVEN. HAIR WASHED.
--- NOTE | 2017-03-02 09:20 | NUR ---
NUTRITION F/U CHART REVIEWED, PT UP TO CHAIR. TOLERATING AHA DIET. < 25% INTAKE BREAKFAST. WILL CONTINUE TO PROVIDE DIET, MONITOR INTAKE. RD FOLLOWING
--- NOTE | 2017-03-02 12:00 | NUR ---
CPAPING FENT OFF.
--- NOTE | 2017-03-02 13:59 | NUR ---
ABGS OBTAINED AND CALLED TO DR LEROY. FIO2 AT 70 PERCENT ON BIPAP.
--- NOTE | 2017-03-02 15:00 | NUR ---
FENTANYL AT 300MCG. PT ON SIMV.
--- NOTE | 2017-03-02 16:45 | NUR ---
DR LEROY HERE INSTRUCT PT BREATHING 45 BREATHS A MINUTE BEEN DOING IT ALL DAY. NEW ORDERS OBTAINED TO INTUBATE PT. CONSULT DR PRUITT.
--- NOTE | 2017-03-02 18:00 | NUR ---
ON VENT AT 100 PERCENT. PEEP INCREASED TO 10. CRITICORE GERARDO PLACED.
--- NOTE | 2017-03-02 19:30 | NUR ---
REC'D PT ON VENT VIA 7.5 ETT TAPED @ 21 CM LIPLINE SEE FLOWSHEET FOR VENT SETTINGS, PT AROUSABLE TO DEEP STIMULI BUT DOES NOT FOLLOW COMMANDS, OGT TAPED SECURELY TO ETT, PLACEMENT VERIFIED VIA SM AIR BOLUS AUSCULTATED OVER EPIGASTRIM, OGT TO LIWS, MIDSTERNAL DRSG CDI, SUBTERNAL DRSG CDI, EXTERNAL P/M VVI 60 VMA 10, CM-SR @ 97, EXTERNAL P/M WIRES TAPED SECURELY TO SUBSTERNAL DRSG, RIGHT LEG DRSGS CDI, BILAT TEDS ON, PPP, BILAT SOFT WRIST RESTRAINTS INTACT, SR UP X 2, VISIBLE TO NURSES STATION.
--- NOTE | 2017-03-02 20:00 | NUR ---
SIGNIFICANT OTHER AT BS, ROUTINE MED GIVEN, PT BITING ON ETT, SUCTIONED DOWN ETT WITH MINIMAL RETURN, DIPRIVAN INCREASED FOR SEDATION AT THIS TIME.
--- NOTE | 2017-03-02 21:15 | NUR ---
EVENING MEDS GIVEN DOWN OGT, MEDS THAT WERE NOT CRUSHABLE HELD AT THIS TIME, NO VISITORS IN, VSS, WILL CONT TO MONITOR FOR CHANGES.
--- NOTE | 2017-03-02 21:40 | NUR ---
PT REPOSITIONED ONTO RIGHT SIDE SUPPORTED WITH PILLOWS.
--- NOTE | 2017-03-02 22:32 | NUR ---
PT RESTLESS IN BED BITING ON ETT, REPOSITIONED FOR COMFORT, CONTINUES TO BITE ETT, RESP RATE 25, DIPRIVAN INCREASED FOR SEDATION, BP STABLE, CM-SR @ 97, WILL MONITOR CLOSELY FOR CHANGES.
[2017-03-03] VITALS (28 sets, daily range): BP systolic 100–140; BP diastolic 49–84
--- NOTE | 2017-03-03 00:30 | NUR ---
PT REPOSITIONED IN BED FOR COMFORT, PT AGITATED WITH SMALLEST AMOUNT OF STIMULI, KICKING LEGS AND SHAKING HEAD SIDE TO SIDE RAPIDLY, TITRATING DIPRIVAN FOR EFFECT.
--- NOTE | 2017-03-03 02:30 | NUR ---
NO CHANGES IN STATUS
--- NOTE | 2017-03-03 03:45 | NUR ---
REASSSESSMENT COMPLETED, NO CHANGES FROM PREVIOUS ASSESSMENT, SUBSTERNAL DRSG CHANGED, PREVIOUS CT SITES PAINTED WITH BETADINE, BIOPATCHES APPLIED TO TEMP P/M WIRES, COVERED WITH 4X4'S AND TEGADERM, PARTIAL CHLORIHEXIDINE BATH PROVIDED, PT REPOSITIONED UP IN BED FOR COMFORT, PT CONTINUES TO THRASH HEAD BACK AND FORTH AND KICK LEGS AT TIMES.
--- NOTE | 2017-03-03 04:35 | NUR ---
RT AT BS FOR ABG, PT PULLING ARM AWAY, KICKING LEGS AND SHAKING HEAD, DIPRIVAN INCREASED TO 75MCG/KG/MIN.
--- NOTE | 2017-03-03 05:00 | NUR ---
DIPRIVAN TITRATED TO 75MCG/KG/MIN, PT REPOSITIONED UP IN BED AND TURNED ONTO LEFT SIDE SUPPORTED WITH PILLOWS, ORAL CARE PROVIDED, BP STABLE, WILL CONT TO MONITOR FOR CHANGES.
--- NOTE | 2017-03-03 05:30 | NUR ---
SIGNIFICANT OTHER AT BS, UPDATE GIVEN AND QUESTIONS ANSWERED.
[2017-03-03 06:18] LABS: HEMATOCRIT 27.1 % (36.0-48.0); HEMOGLOBIN 9.4 g/dL (12-16); MCH 30.5 pg (26.0-34.0); MCHC 34.7 g/dL (31.0-37.0); MEAN PLATELET VOLUME 9.6 fL (7.4-10.4); RBC 3.08 10x6/uL (4.00-5.40); RDW 13.7 % (11.5-14.5); WBC 18.5 10x3/uL (4.8-10.8)
[2017-03-03 06:36] LABS: ALBUMIN 2.6 g/dL (3.4-5.0); ALKALINE PHOSPHATASE 94 U/L (46-116); ALT (SGPT) 29 U/L (10-68); BILIRUBIN - TOTAL 0.61 mg/dL (0.2-1.3); CALC OSMOLALITY 277 mosm/kg (275-300); CALCIUM 7.8 mg/dL (8.5-10.1); CARBON DIOXIDE 30.4 mmol/L (21.0-32.0); CHLORIDE - SERUM 98 mmol/L (98-107); CREATININE - SERUM 0.5 mg/dL (0.6-1.3); GLUCOSE 145 mg/dL (74-106); PROTEIN - SERUM 6.3 g/dL (6.4-8.2); SODIUM 138 mmol/L (136-145); UREA NITROGEN 10 mg/dL (7-18); eGFR NON AFRICAN AMERICAN > 90 mL/min (90-120)
[2017-03-03 06:39] LABS: POTASSIUM - SERUM 3.2 mmol/L (3.5-5.1)
--- NOTE | 2017-03-03 13:53 | NUR ---
* Is the patient Alert and Oriented? No 0 * How many steps to enter\exit or inside your home? 3 0 * Pharmacy [facility] 0 * Preadmission Environment Home with Family 0 * ADLs Independent 0 * List name and contact numbers for known caregivers / representatives who currently or will assist patient after discharge: Mercedes Bolaños [phone] Father - Rivera [facility] [phone] Brother - Jose [facility] [phone] 0 * Additional services required to return to the preadmission environment? No 0 * Can the patient safely return to the preadmission environment? Yes 0 * Has this patient been hospitalized within the prior 30 days at any hospital? No Patient Name: EMERSON TUTTLE Admission Status: ER Accout number: [id number] Admission Date: 02-26-2017 : 1965 Admission Diagnosis:UNSTABLE ANGINA Attending: LUIS F PEÑA Current LOS: 5 Planned Disposition: Home Primary Insurance: [employer] CHO[employer] O [facility] Discharge Planning Comments: Patient sedated, on vent. CM met with suhailritchie Kostas Miky, at bedside. He states patient lives at home with her teenage daughter who is high school senior. He reports she is independent with all ADL's & AIDL's. He reports her PCP is a female physician in [place], but can not recall her name at this time. CM will follow & assist as needed. Irrigation Foreman: Catherine Jackson
--- NOTE | 2017-03-03 19:35 | NUR ---
REC'D PT ON VENT VIA 7.5 ETT TAPED @ 21CM LIPLINE SEE FLOWSHEET FOR VENT SETTINGS, OGT TAPED SECURELY TO ETT, PLACEMENT VERIFIED VIA SM AIR BOLUS AUSCULTATED OVER EPIGASTRIM, PULMOCARE @ 10CC/HR, RESIDUAL 0, LDLSCL DRSG CDI WITH PLASMALYTE @ 30CC VIA MANNIFOLD, DOPAMINE @ 5MCG/KG/MIN OR 15CC, DIPRIVAN @ 36CC OR 75MCG/KG/MIN, AND KCL RIDER @ 25CC/HR, MIDSTERNAL DRSG CDI, SUBSTERNAL DRSG CDI WITH EXTERNAL P/M WIRES TAPED SECURELY, EXTERNAL P/M VVI 60 VMA 10, CM-SR, ABD ROUND SOFT, BS HYPOACTIVE, CRITICORE GERARDO PATENT DRAINING CLEAR YELLOW URINE, BILAT SOFT WRIST RESTRAINTS INTACT, TEDS AND SCDS INTACT, PT PROVIDED PARTIAL BATH AND LINEN CHANGE, AIR OVERLAY MATTRESS APPLIED, PT REPOSITIONED UP IN BED AND ONTO LEFT SIDE SUPPORTED WITH PILLOWS, VISIBLE TO NURSES STATION.
--- NOTE | 2017-03-03 20:45 | NUR ---
EVENING MEDS GIVEN DOWN OGT, PT JERKED HEAD WHILE PLACING BACTROBAN IN NOSE, BLEEDING NOTED, WILL MONITOR.
--- NOTE | 2017-03-03 21:13 | NUR ---
PARTIAL BATH AND LINEN CHANGE, PT REPOSITIONED ONTO RIGHT SIDE SUPPORTED WITH PILLOWS, NO VISITORS IN AT THIS TIME.
--- NOTE | 2017-03-03 23:15 | NUR ---
REASSESSMENT COMPLETED, PT REPOSITIONED UP AND ONTO BACK, ORAL CARE PROVIDED, BLOOD TINGED SECRETIONS SUCTIONED FROM MOUTH, LIP MOISTURIZER APPLIED, VSS WILL CONT TO MONITOR.
[2017-03-04] VITALS (26 sets, daily range): BP systolic 107–145; BP diastolic 50–78
--- NOTE | 2017-03-04 00:10 | NUR ---
PT SELF EXTUBATED, RESTRAINTS INTACT, RT AT BS BAGGING PT O2 SAT 97%, PT MOVING HEAD DESPITE DIRECTIONS NOT TOO, FIGHTING STAFF, DR. AMRIT ONOFRE.
--- NOTE | 2017-03-04 00:15 | NUR ---
VANC TROUGH DRAWN AND SENT TO LAB
--- NOTE | 2017-03-04 00:20 | NUR ---
DR. MARCUS AT , 2MG VERSED AND 100MG SUCCINYLCHOLINE GIVEN IV FOR INTUBATION, BP 137/77, CM-SR @ 97, P/M SENSING, COLOR CHANGE NOTED CO2 DETECTOR, RADIOLOGY CALLED FOR XRAY FOR TUBE PLACEMENT, OGT PLACED BY Alexander HOYT RN, PLACEMENT VERIFIED BY AUSCULTATION AND XRAY.
[2017-03-04 00:30] LABS: POTASSIUM - SERUM 3.6 mmol/L (3.5-5.1); VANCOMYCIN - TROUGH 9.5 ug/mL (10.0-20.0)
--- NOTE | 2017-03-04 00:55 | NUR ---
PT COUGHING AND GAGGING AGAINST ETT, PULLING AT RESTRAINTS, 2MG ATIVAN GIVEN SLOW IVP FOR AGITATION, DIPRIVAN CONTINUES @ 36CC OR 75MCG/KG/MIN, BP 121/72, WILL CONT TO MONITOR CLOSELY FOR CHANGES.
--- NOTE | 2017-03-04 02:15 | NUR ---
ROUTINE MEDS GIVEN, PT RESTING EYES CLOSED, RESP 17, BP STABLE, VISIBLE TO NURSES STATION.
--- NOTE | 2017-03-04 03:05 | NUR ---
REASSESSMENT COMPLETED, NO CHANGES FROM PREVIOUS ASSESSMENT, PT REPOSITIONED FOR COMFORT, VSS.
--- NOTE | 2017-03-04 04:30 | NUR ---
RADIOLOGY AT BS, AM CXR OBTAINED
--- NOTE | 2017-03-04 06:00 | NUR ---
AM LAB DRAWN FROM CVL AND SENT TO LAB, AM MEDS GIVEN, NO VISITORS IN AT THIS TIME, PT REPOSITIONED UP AND ONTO RIGHT SIDE
--- NOTE | 2017-03-04 07:00 | NUR ---
SHIFT ASSESSMENT COMPLETE, VSS, SEDATED ON VENT, PT AGIATATED, THRASHES HEAD BUT DOES STOP WHEN TOLD TO, DRESSINGS TO STERNUM AND BLE CDI, TEMP PACEMAKER IN PLACE, VVI 60, OGT IN PLACE, CVL TO SUBLCAVIAN, REPOSITIONED, WILL CONTINUE TO MONITOR
[2017-03-04 07:14] LABS: HEMATOCRIT 24.7 % (36.0-48.0); HEMOGLOBIN 8.4 g/dL (12-16); MCH 30.5 pg (26.0-34.0); MCV 89.8 fL (80.0-100.0); MEAN PLATELET VOLUME 9.9 fL (7.4-10.4); RBC 2.75 10x6/uL (4.00-5.40); RDW 14.5 % (11.5-14.5); WBC 17.5 10x3/uL (4.8-10.8)
[2017-03-04 07:33] LABS: ALBUMIN 2.2 g/dL (3.4-5.0); ALKALINE PHOSPHATASE 84 U/L (46-116); ALT (SGPT) 24 U/L (10-68); BILIRUBIN - TOTAL 0.41 mg/dL (0.2-1.3); CARBON DIOXIDE 29.5 mmol/L (21.0-32.0); CHLORIDE - SERUM 98 mmol/L (98-107); CREATININE - SERUM 0.5 mg/dL (0.6-1.3); GLUCOSE 164 mg/dL (74-106); SODIUM 137 mmol/L (136-145); eGFR NON AFRICAN AMERICAN > 90 mL/min (90-120)
[2017-03-04 07:39] LABS: CALC OSMOLALITY 278 mosm/kg (275-300); POTASSIUM - SERUM 4.2 mmol/L (3.5-5.1); UREA NITROGEN 15 mg/dL (7-18)
--- NOTE | 2017-03-04 09:00 | NUR ---
NEW ORDERS FOR FENTANYL AND VECURONIUM, ADMISTERED PER EMAR, TRAIN OF 4 4/4, VSS, WILL CONTINUE TO MONITOR
--- NOTE | 2017-03-04 09:36 | NUR ---
NUTRITION F/U CHART REVIEWED, SPOKE WITH NURSING. PT REMAINS ON VENT. TOLERATING PULMOCARE @ 20 CC/HR. CURRENT GOAL RATE 30 CC/HR. DIPRIVAN @ 36 CC/HR PROVIDING 950 KCAL/DAY. WILL REQUIRE INCREASED TUBE FEED RATE WHEN DIPRIVAN RATE IS REDUCED. RD FOLLOWING
--- NOTE | 2017-03-04 09:58 | NUR ---
VECURONIUM AND FENTANYL TITRATED UP, TRAIN OF 4 CONTINUES 4/4, CONTINUES THRASHING HEAD.
--- NOTE | 2017-03-04 10:59 | NUR ---
TRAIN OF FOUR 4/4, VSS, NO SIGNS OF PAIN, NO LONGER THRASHING HEAD, WILL CONTINUE TO MONITOR
--- NOTE | 2017-03-04 12:00 | NUR ---
VSS, REPOSITIONED, CONTINUES ON VECURONIUM AND FENTANYL, TRAIN OF FOUR 4/4
--- NOTE | 2017-03-04 13:00 | NUR ---
TOTAL LINEN CHANGE AND BED BATH PROVIDED, VSS, REPOSITIONED, 4/4 ON TRAIN OF FOURS, WILL CONTINUE TO MONITOR
--- NOTE | 2017-03-04 14:00 | NUR ---
VSS, REPOSITIONED, 4/4 TRAIN OF TENS
[2017-03-04 14:19] LABS: FUNGUS STAIN Final report (())
--- NOTE | 2017-03-04 15:06 | NUR ---
PT REPOSITIONED, VSS, NO CHANGES NOTED
--- NOTE | 2017-03-04 16:00 | NUR ---
REPOSITIONED, VSS, NO SIGNS OF PAIN, ORAL CARE PROVIDED, TRAIN OF FOURS 4/4, NO CHANGES IN VECURONIUM OR FENTANYL, WILL CONTINUE TO MONITOR
--- NOTE | 2017-03-04 17:00 | NUR ---
VSS, REPOSITIONED, NO CHANGES NOTED
--- NOTE | 2017-03-04 18:09 | NUR ---
PT REPOSITIONED, VSS, NO CHANGES NOTED, CONTINUES ON VECURONIUM AND FENTANYL WITH TRAIN OF TENS 4/4
[2017-03-04 19:11] LABS: ACID FAST SMEAR Negative (()); AFB SPECIMEN PROCESSING Concentration (())
--- NOTE | 2017-03-04 19:15 | NUR ---
REPORT RECEIVED AND CARE ASSUMED. INITIAL SHIFT ASSESSMENT COMPLETED SEE FLOWSHEET. PT IS SEDATED AND HAS TRAIN OF FOUR. INTUBATED. ALL SETTINGS PER FLOWSHEET. PT BEING MONITORED PER STANDARD ICU PROTOCOL AND ALL ALARMS SET AND VERIFIED. ALL IVF VERIFIED FOR STATUS AND ARE CURRENT AND LABELED CORRECTLY. DR. LEROY WAS JUST IN TO SEE THE PATIENT AND ASSESS HER STATUS.
--- NOTE | 2017-03-04 21:00 | NUR ---
NO VISITORS AT THIS TIME. HS MEDS GIVEN PER AUG. DEONTE HELD DUE TO BEING EXTENDED RELEASE. SPOKE WITH PHARMACIST AND NO OTHER FORM AVAILABLE, UNABLE TO CRUSH. VSS
--- NOTE | 2017-03-04 23:00 | NUR ---
SHIFT REASSESSMENT COMPLETED SEE FLOWSHEET. NOTE PT DID MOVE HEAD AWAY WHEN ADMINISTERING ORAL CARE AND DID DRAW UP LEG. CONTINUED TO ASSESS PT AFTER INTERACTION AND NOTED PT IMMEDIATELY CALMED DOWN AND HAD NO FURTHER MOVEMENT. NO TITRATION OF MEDICATIONS AT THIS TIME. NOTE KOKO HUNG WITH NEW TUBING, LABELED AND TIMED DOCUMENTED ON MAR
[2017-03-05] VITALS (29 sets, daily range): BP systolic 114–148; BP diastolic 54–75
--- NOTE | 2017-03-05 01:00 | NUR ---
PT SLEEPING WELL CONT TO MONITOR
--- NOTE | 2017-03-05 03:00 | NUR ---
SHIFT REASSESSMENT COMPLETED SEE FLOWSHEET. NO SIGNIFICANT CHANGES
--- NOTE | 2017-03-05 03:00 | NUR ---
PT TURNED AND REPOSITIONED. SHIFT REASSESSMENT COMPLETED SEE FLOWSHEET. PT TOLERATING O2 AT 3L N/C.
--- NOTE | 2017-03-05 03:30 | NUR ---
PT HAD EPISODE OF DESAT WITH SPO2 DROPPING TO LOW 80'S. REQUIRED SUCTIONING TO REMOVE THICK WHITE/BEYER SECRETIONS FROM BACK OF MOUTH SHE WAS UNABLE TO EXPECTORATE ON HER OWN. PT WITH IMMEDIATE RESPONSE AND SPO2 RETURNED TO 98%. PT TOLERATED WELL
--- NOTE | 2017-03-05 03:51 | NUR ---
RADIOLOGY AT BEDSIDE FOR AM CXR
--- NOTE | 2017-03-05 03:54 | NUR ---
NEW TUBE FEEDING BAG HUNG
--- NOTE | 2017-03-05 05:00 | NUR ---
PT BECOMING SOMEWHAT AGGITATED WITH CARE DRAWING LEGS UP MOVING HEAD SIDE TO SIDE AND PULLING AT RESTRAINTS. INCREASED VECURONIUM TO 0.167 MCG/KG/MIN WITH AN ALMOST IMMEDIATE SETTLING OF PT OBSERVED. DRESSING CHANGES TO LEG (HARVEST SITES) AND TPM WIRES DONE PER ORDER.
--- NOTE | 2017-03-05 05:35 | NUR ---
ABG RESULTS REVIEWED
--- NOTE | 2017-03-05 05:45 | NUR ---
COMPLETE BATH DONE WITH ALL LINENS CHANGED. PT TOLERATED WELL
--- NOTE | 2017-03-05 06:15 | NUR ---
RESP 14 PT CALM SEDATED, CHANGED VECURONIUM BACK TO 0.083MCG/KG/MIN WILL MONITOR
--- NOTE | 2017-03-05 06:15 | NUR ---
AM LAB DRAWN AND SENT TO LAB FOR ANALYSIS
[2017-03-05 06:47] LABS: BASOPHILS 0.1 % (0-2); EOSINOPHILS 0.1 % (0-7); HEMATOCRIT 26.2 % (36.0-48.0); HEMOGLOBIN 8.8 g/dL (12-16); LYMPHOCYTES 13.1 % (15-50); MCH 30.6 pg (26.0-34.0); MCHC 33.6 g/dL (31.0-37.0); MEAN PLATELET VOLUME 9.3 fL (7.4-10.4); MONOCYTES 8.4 % (2-11); NEUTROPHILS 72.3 % (40-80); RBC 2.88 10x6/uL (4.00-5.40); RDW 14.9 % (11.5-14.5); WBC 17.7 10x3/uL (4.8-10.8)
--- NOTE | 2017-03-05 07:00 | NUR ---
PT SEDATED ON VENT, ON DIPROVAN, VECURONIUM, FENTANYL, SEE IV FLOWSHEET, PUPILS EQUAL AND REACTIVE, CVL TO L SUBCLAVIAN DRESSING CDI, WRIST RESTRAINTS IN PLACE, OGT IN PLACE PER ASPIRATION/AUSCULTATION, PULMOCARE AT 30, DRESSINGS TO STERNUM AND RLE CDI, TEMP PACEMAKER IN PLACE, VVI, VSS, REPOSITIONED, WILL CONTINUE TO MONITOR
[2017-03-05 07:01] LABS: PLATELET COUNT 330 10x3/uL (130-400)
[2017-03-05 07:16] LABS: ALBUMIN 2.3 g/dL (3.4-5.0); ALKALINE PHOSPHATASE 91 U/L (46-116); ALT (SGPT) 24 U/L (10-68); BILIRUBIN - TOTAL 0.32 mg/dL (0.2-1.3); CALC OSMOLALITY 284 mosm/kg (275-300); CALCIUM 7.8 mg/dL (8.5-10.1); CHLORIDE - SERUM 100 mmol/L (98-107); CREATININE - SERUM 0.6 mg/dL (0.6-1.3); GLUCOSE 171 mg/dL (74-106); POTASSIUM - SERUM 3.6 mmol/L (3.5-5.1); PROTEIN - SERUM 6.3 g/dL (6.4-8.2); SODIUM 139 mmol/L (136-145); eGFR NON AFRICAN AMERICAN > 90 mL/min (90-120)
[2017-03-05 07:20] LABS: UREA NITROGEN 22 mg/dL (7-18)
--- NOTE | 2017-03-05 08:00 | NUR ---
PT TURNING HEAD AND KICKING LEGS DURING PT, TITRATED VECURONIUM UP, TRAIN OF FOURS 4/4
--- NOTE | 2017-03-05 09:00 | NUR ---
NO CHANGES NOTED, PT SEDATED ON VENT, VSS, WILL CONTINUE TO MONITOR
--- NOTE | 2017-03-05 10:12 | NUR ---
VANC TROUGH 17.4, VANC ADMINSITERED PER EMAR, VSS, TOF 09/30, WILL CONTINUE TO MONITOR
--- NOTE | 2017-03-05 11:00 | NUR ---
PT REPOSITIONED, VSS, NO SIGNS OF PAIN, TOF 4/4, WILL CONTINUE TO MONITOR
--- NOTE | 2017-03-05 12:00 | NUR ---
REPOSITIONED, VSS, TOF /, WILL CONTINUE TO MONITOR
--- NOTE | 2017-03-05 12:58 | NUR ---
PT SHAKING HEAD AND OPENING EYES, TOF 4/4, VSS, INCREASED FENTANYL TO 200MCG/HR
--- NOTE | 2017-03-05 14:07 | NUR ---
PT TURNING HEAD AND SLIGHTLY PULLING RESTRAINTS, VECURONIUM INCREASED, SEE FLOWSHEET
--- NOTE | 2017-03-05 15:00 | NUR ---
BED BATH AND PARTIAL LINEN CHANGE PROVIDED, VSS, TOF 09/30, WILL CONTINUE TO MONITOR
--- NOTE | 2017-03-05 16:00 | NUR ---
TOF 4/4, VSS, NO MOVEMENT OR CHANGES NOTED, REPOSITIONED, WILL CONTINUE TO MONITOR
--- NOTE | 2017-03-05 17:00 | NUR ---
PT REPOSITIONED VSS NO SINGS OF PAIN, NO CHANGES NOTED
--- NOTE | 2017-03-05 18:00 | NUR ---
PT REPOSITIONED VSS NO SIGNS OF PAIN, TOF 4/4, SEE IV FLOWSHEET, WILL CONTINUE TO MONITOR
--- NOTE | 2017-03-05 20:00 | NUR ---
FAMILY CALLED FOR UPDATE, UPDATE PROVIDED.
--- NOTE | 2017-03-05 20:33 | NUR ---
SHIFT ASSESSMENT COMPLETE, PATIENT SEDATED ON VENT. SEE IV DRIPS. PATIENT ON VECURONIUM, TOF 4/4. OPENS EYES AND MOVES HEAD WHEN BEING SPOKEN TO, BUT OVERALL IS VERY COOPERATIVE AND RELAXED. RR 14, NONLABORED BREATHING. O2 SAT 96%. CRACKLES HEARD IN RUL,RML,AND JEN. DIMINISHED @ BASES. S1S2, NSR WITH RATE OF 92. TPM @ VVI 60, WIRES INTACT, DRESSINGS C/D/I. MIDSTERNAL DRESSING C/D/I. ABDOMEN ROUND, SOFT TO PALPATION. OGT INFUSING PULMOCARE @ GOAL RATE OF 30CC WITH NO FLUSH PER ORDER. RESIDUAL AMOUNT 10CC. CRITICORE AKIN DRIANING CLEAR YELLOW URINE TO GRAVITY, FREE OF KINKS. CORE TEMP 99.1. HARVEST SITES ON UPPER RIGHT LEG, DRESSINGS C/D/I. PERIPHERAL PULSES +2. CAP REFILL < 3 SECONDS. L SUBCLAVIAN CL DRESSING C/D/I, BIOPATCH IN PLACE, SWABS IN USE. SEE IV DRIP FLOWSHEET. VSS, WILL CONTINUE TO MONITOR. SEE SHIFT ASSESSMENT FLOWSHEET FOR MORE DETAILS.
--- NOTE | 2017-03-05 21:00 | NUR ---
PATIENT PULLED UP AND REPOSISTIONED IN BED. NIGHT MEDS GIVEN DOWN OG TUBE. OPENED EYES WHEN GIVINE BACTROBAN. CALM AND COOPERATIVE AT THIS TIME. SHAKES HEAD YES AND NO TO QUESTIONS ASKED.
--- NOTE | 2017-03-05 22:10 | NUR ---
PROPOFOL LINE CHANGED PER PROTOCOL
--- NOTE | 2017-03-05 23:00 | NUR ---
TOF 09/30
--- NOTE | 2017-03-05 23:05 | NUR ---
REASSESSMENT COMPLETE. SEE FLOWSHEET FOR DETAILS. PATIENT SEDATED ON VENT. RESTING WELL. NO ACUTE CHANGES FROM INITIAL ASSESSMENT. VSS. REPOSISTIONED AT THIS TIME. OPENS EYES, WHEN MOVED. WILL ANNI.
[2017-03-06] VITALS (36 sets, daily range): BP systolic 119–155; BP diastolic 57–79
--- NOTE | 2017-03-06 00:05 | NUR ---
HARVEST SITE INCISION'S DRESSINGS CHANGED. INCISIONS WELL APPROXIMATED WITH JOSE INTACT. POVIDINE OINTMENT AND 4X4's USED TO DRESS INCISIONS.
--- NOTE | 2017-03-06 01:02 | NUR ---
PATIENT JERKING HEAD SIDE TO SIDE AND ATTEMPTING TO GRAB ETT. VECURONIUM TITRATED UP. TOF 4/4
--- NOTE | 2017-03-06 01:40 | NUR ---
TPM DRESSING CHANGED, WIRES INTACT. INCISIONS WNL. CLEANED WITH POVIDONE.
--- NOTE | 2017-03-06 03:00 | NUR ---
REASSESSMENT COMPLETE, NO ACUTE CHANGES. TOF 4/4. PATIENT WILL OPEN EYES AND MOVE HEAD. VSS. PATIENT TURNED AND ORAL CARE PROVIDED. WILL MONITOR.
--- NOTE | 2017-03-06 03:34 | NUR ---
TUBE FEEDING BAG CHANGED PER PROTOCOL.
--- NOTE | 2017-03-06 04:00 | NUR ---
XRAY IN ROOM, TOLERATED WELL.
--- NOTE | 2017-03-06 05:00 | NUR ---
PATIENT RESTING WELL. VSS. TOF 09/30.
--- NOTE | 2017-03-06 05:10 | NUR ---
BLOOD GAS REVIEWED, REPLACING K PER PROTOCOL.
--- NOTE | 2017-03-06 06:05 | NUR ---
LAB DRAWN FROM CENTRAL LINE AND SENT TO LAB.
[2017-03-06 06:16] LABS: BASOPHILS 0.1 % (0-2); EOSINOPHILS 0.2 % (0-7); IMMATURE GRANULOCYTES 10.3 % (0-5); LYMPHOCYTES 13.5 % (15-50); MCH 30.5 pg (26.0-34.0); MCHC 33.3 g/dL (31.0-37.0); MCV 91.5 fL (80.0-100.0); MEAN PLATELET VOLUME 9.1 fL (7.4-10.4); MONOCYTES 7.1 % (2-11); NEUTROPHILS 68.8 % (40-80); RBC 2.95 10x6/uL (4.00-5.40)
[2017-03-06 06:30] LABS: PLATELET COUNT 413 10x3/uL (130-400)
[2017-03-06 07:02] LABS: ALBUMIN 2.5 g/dL (3.4-5.0); ALKALINE PHOSPHATASE 81 U/L (46-116); ALT (SGPT) 21 U/L (10-68); BILIRUBIN - TOTAL 0.35 mg/dL (0.2-1.3); CALC OSMOLALITY 288 mosm/kg (275-300); CALCIUM 7.9 mg/dL (8.5-10.1); CARBON DIOXIDE 31.3 mmol/L (21.0-32.0); CHLORIDE - SERUM 100 mmol/L (98-107); CREATININE - SERUM 0.7 mg/dL (0.6-1.3); GLUCOSE 178 mg/dL (74-106); POTASSIUM - SERUM 3.6 mmol/L (3.5-5.1); PROTEIN - SERUM 6.3 g/dL (6.4-8.2); SODIUM 141 mmol/L (136-145); UREA NITROGEN 24 mg/dL (7-18); eGFR NON AFRICAN AMERICAN > 90 mL/min (90-120)
--- NOTE | 2017-03-06 07:45 | NUR ---
DR. LEROY AT BEDSIDE. NOTIFIED PT DOES NOT HAVE BINDER ON CHEST. INSTRUCTED TO REPLACE BINDER. CENTRAL SUPPLY NOTIFIED OF NEED.
--- NOTE | 2017-03-06 08:00 | NUR ---
SEDATION SCALE NOTED AT 3. PT CURRENTLY ON PARALYTIC DRIP.
--- NOTE | 2017-03-06 08:20 | NUR ---
BREASTS TAPED FOR SUPPORT UNTIL BINDER ARRIVES.
--- NOTE | 2017-03-06 09:46 | NUR ---
Nutrition follow-up: Pt now on a paralytic drip; remains intubated [facility] infusing @ 30 ml/hr via OGT Labs reviewed RDN following.
--- NOTE | 2017-03-06 13:00 | NUR ---
VECURONIUM DC'D PER ORDER.
--- NOTE | 2017-03-06 19:15 | NUR ---
SHIFT ASSESSMENT COMPLETE, PATIENT SEDATED ON VENT. RESPIRATORY IN ROOM GIVING TREATMENT. PATIENT SHAKING HEAD AND THRASHING IN BED, SEDATION INCREASED. VSS, WILL MONITOR.
--- NOTE | 2017-03-06 19:20 | NUR ---
SHIFT ASSESSMENT COMPLETE, SEE FLOWSHEET FOR DETAILS. VSS. PATIENT ON VENT AND SEDATED. SEE IV DRIPS. ORAL CARE AND REPOSISTIONING DONE AT THIS TIME. NSR ON MONITOR. WILL CONTINUE TO ASSESS.
--- NOTE | 2017-03-06 21:00 | NUR ---
NIGHT MEDS GIVEN VIA OGT.
--- NOTE | 2017-03-06 23:00 | NUR ---
REASSESSMENT COMPLETE, SEE FLOWSHEET. VSS, SEDATED ON VENT. CALM AND COOPERATIVE AT THIS TIME. NO ACUTE CHANGES, WILL MONITOR.
[2017-03-07] VITALS (48 sets, daily range): BP systolic 35–149; BP diastolic 55–76
--- NOTE | 2017-03-07 01:00 | NUR ---
RESTING WELL, VSS.
--- NOTE | 2017-03-07 02:00 | NUR ---
PACEMAKER DRESSING CHANGED, TPM WIRES INTACT, CLEANED WITH POVIDONE-IODINE, COVERED WITH 4X4's, BIOPATCH INTACT X2. DRESSINGS CHANGED ON RIGHT LEG INCISIONS. INCISIONS WNL, JOSE INTACT. CLEANED WITH POVIDONE AND COVERED WITH 4X4's. PROPOFOL AND TUBE FEEDING LINES CHANGED PER PROTOCOL. PATIENT TOLERATED WELL. ABDOMINAL BINDER PLACED BACK ON PATIENT.
--- NOTE | 2017-03-07 03:00 | NUR ---
REASSESSMENT COMPLETE, SEE FLOWSHEET. VSS.
--- NOTE | 2017-03-07 03:30 | NUR ---
XRAY AT BEDSIDE.
--- NOTE | 2017-03-07 04:35 | NUR ---
BLOOD GAS REVIEWED, K COVERED PER PROTOCOL.
--- NOTE | 2017-03-07 05:00 | NUR ---
PATIENT TURNED, ORAL CARE PROVIDED. VSS.
[2017-03-07 06:28] LABS: HEMATOCRIT 28.8 % (36.0-48.0); HEMOGLOBIN 9.5 g/dL (12-16); MCH 30.3 pg (26.0-34.0); MCV 91.7 fL (80.0-100.0); MEAN PLATELET VOLUME 9.3 fL (7.4-10.4); PLATELET COUNT 521 10x3/uL (130-400); RBC 3.14 10x6/uL (4.00-5.40); RDW 15.1 % (11.5-14.5); WBC 20.7 10x3/uL (4.8-10.8)
[2017-03-07 06:39] LABS: ALBUMIN 2.5 g/dL (3.4-5.0); ALKALINE PHOSPHATASE 70 U/L (46-116); ALT (SGPT) 22 U/L (10-68); CALC OSMOLALITY 290 mosm/kg (275-300); CALCIUM 8.2 mg/dL (8.5-10.1); CARBON DIOXIDE 31.6 mmol/L (21.0-32.0); CHLORIDE - SERUM 103 mmol/L (98-107); CREATININE - SERUM 0.7 mg/dL (0.6-1.3); GLUCOSE 163 mg/dL (74-106); POTASSIUM - SERUM 3.8 mmol/L (3.5-5.1); PROTEIN - SERUM 6.1 g/dL (6.4-8.2); SODIUM 142 mmol/L (136-145); UREA NITROGEN 24 mg/dL (7-18); eGFR NON AFRICAN AMERICAN > 90 mL/min (90-120)
--- NOTE | 2017-03-07 07:00 | NUR ---
ASSESSMENT COMPLETE PER FLOW SHEET.. SEDATED ON VENT, VITAL SIGNS STABLE.
[2017-03-07 07:27] LABS: EOSINOPHILS 1 % (0-7); LYMPHOCYTES 12 % (15-50); MONOCYTES 2 % (2-11); NEUTROPHILS 74 % (40-80); PLATELET ESTIMATE NORMAL; PLATELET MORPHOLOGY GIANT PLTS PRESENT
[2017-03-07 09:59] LABS: POTASSIUM - SERUM 4.3 mmol/L (3.5-5.1); VANCOMYCIN - TROUGH 19.5 ug/mL (10.0-20.0)
--- NOTE | 2017-03-07 10:00 | NUR ---
TEMP IS 38.6. TYLENOL SUPPOSITORY GIVEN PER ORDERS. SEE MAR.
--- NOTE | 2017-03-07 10:30 | NUR ---
DR. PRUITT AT BEDSIDE, NO NEW ORDERS REC'D.
--- NOTE | 2017-03-07 11:00 | NUR ---
DR. LEROY AT BEDSIDE, NO NEW ORDERS REC'D.
--- NOTE | 2017-03-07 12:37 | NUR ---
BATH GIVEN AND LINENS CHANGED.
--- NOTE | 2017-03-07 14:15 | NUR ---
RESTING QUIETLY, SEDATED ON VENT. VITAL SIGNS STABLE, WILL CONTINUE TO MONITOR.
--- NOTE | 2017-03-07 16:00 | NUR ---
FAMILY AT BEDSIDE. VSS. SEDATED ON VENT.
--- NOTE | 2017-03-07 17:44 | NUR ---
SEDATED ON VENT. VITAL SIGNS STABLE. WILL CONTINUE TO MONITOR.
--- NOTE | 2017-03-07 21:00 | NUR ---
NIGHT MEDS GIVEN VIA OG TUBE.
--- NOTE | 2017-03-07 23:05 | NUR ---
REASSESSMENT COMPLETE, SEE FLOWSHEET. NO CHANGE FROM PREVIOUS ASSESSMENT. VSS.
[2017-03-08] VITALS (62 sets, daily range): BP systolic 97–148; BP diastolic 39–81
--- NOTE | 2017-03-08 00:45 | NUR ---
TPM DRESSING CHANGED, CLEANED WITH POVIDONE AND DRESSED WITH 4X4's, WIRES INTACT, BIOPATCH IN PLACE. LEG DRESSINGS CHANGED, CLEANED WITH POVIDONE AND DRESSED WITH 4X4's. JOSE INTACT, INCISIONS WELL APPROXIMATED AND WNL.
--- NOTE | 2017-03-08 01:05 | NUR ---
PATIENT AGITATED, THRASHING IN BED AND SHAKING HEAD/BITING ETT TUBE. PRN ATIVAN GIVEN.
--- NOTE | 2017-03-08 03:30 | NUR ---
TUBE FEEDING BAG CHANGED PER PROTOCOL.
--- NOTE | 2017-03-08 05:00 | NUR ---
PULLED UP AND REPOSISTIONED. VSS.
--- NOTE | 2017-03-08 05:45 | NUR ---
PROPOFOL TUBING CHANGED PER PROTOCOL.
[2017-03-08 06:17] LABS: BASOPHILS 0.1 % (0-2); EOSINOPHILS 0.1 % (0-7); HEMATOCRIT 28.9 % (36.0-48.0); HEMOGLOBIN 9.6 g/dL (12-16); IMMATURE GRANULOCYTES 9.6 % (0-5); LYMPHOCYTES 12.5 % (15-50); MCH 30.2 pg (26.0-34.0); MCHC 33.2 g/dL (31.0-37.0); MCV 90.9 fL (80.0-100.0); MEAN PLATELET VOLUME 8.9 fL (7.4-10.4); MONOCYTES 5.3 % (2-11); NEUTROPHILS 72.4 % (40-80); PLATELET COUNT 511 10x3/uL (130-400); RBC 3.18 10x6/uL (4.00-5.40); RDW 14.9 % (11.5-14.5); WBC 23.4 10x3/uL (4.8-10.8)
[2017-03-08 06:27] LABS: ALBUMIN 2.5 g/dL (3.4-5.0); ALKALINE PHOSPHATASE 68 U/L (46-116); ALT (SGPT) 21 U/L (10-68); BILIRUBIN - TOTAL 0.36 mg/dL (0.2-1.3); CALC OSMOLALITY 283 mosm/kg (275-300); CALCIUM 7.8 mg/dL (8.5-10.1); CARBON DIOXIDE 29.3 mmol/L (21.0-32.0); CHLORIDE - SERUM 100 mmol/L (98-107); CREATININE - SERUM 0.7 mg/dL (0.6-1.3); GLUCOSE 165 mg/dL (74-106); SODIUM 138 mmol/L (136-145); UREA NITROGEN 25 mg/dL (7-18); eGFR NON AFRICAN AMERICAN > 90 mL/min (90-120)
--- NOTE | 2017-03-08 17:26 | NUR ---
OPEN EYES EASILY TO STIMULI. GRIMACES WITH ORAL CARE AND TURNING. ETT SECURE TO VENT NO DISTRESS NOTED. MONITOR SR. CHEST DRESSING DRY AND INTACT. ABD BINDER ON CHEST. PACEMAKER CONNECTED VVI RATE OF 60. GERARDO CATH PATENT WITH CLEAR YELLOW URINE. SCD AND SUZETTE ON LOWER LEGS. OVER LAY MATTRESS ON BED. TURNED Q 1-2 HOURS. NO SKIN BREAKDOWN NOTED. DRESSINGS X 5 RIGHT LEG DRY AND INTACT. LEFT SUBCLAVIAN DOUBLE LUMEN DRESSING DRY AND INTACT NO REDNESS AT SITE. BLOOD CULTURES X2 DONE PER MARY PATTERSON. INFUSING WITH PLASAMA LYTE AT 30 ML HOUR. DOPAMINE NOW AT 4 MCG/KG/MIN FENTANYL AT 700 HOUR. DIPRIVAN AT 75 MCG/KG/MIN. ETT SECURE BILATERAL LUNG SOUNDS EQUAL. HEAD OF BED ELVATED 30 DEGREES. NG INFUSING WITH PULMOCARE AT 30 ML HOUR. RESIDULA 60 ML. TUBE FEEDING AT GOAL RATE.
--- NOTE | 2017-03-08 19:30 | NUR ---
PT IS AWAKE WITH EYES OPEN AND SQUEEZES HANDS WHEN ASKED.
--- NOTE | 2017-03-08 19:30 | NUR ---
REPORT RECIEVED. ASSESSMENT COMPLETED. SEE FLOW SHEET FOR FURTHER DETAILS. ORAL CARE DONE. PT POSITIONED FOR COMFORT WILL CONTINUE TO MONITOR.
--- NOTE | 2017-03-08 21:00 | NUR ---
NO VISITORS AT THIS TIME. GERARDO CARE PROVIDED PER ICU PROTOCOL SURE STEP WIPES. PT POSITONED FOR COMFORT WILL CONTINUE TO MONITOR.
--- NOTE | 2017-03-08 23:00 | NUR ---
REASSESSMENT COMPLETED. NO ACUTE CHANGES AT THIS TIME. ORAL CARE DONE. POSITIONED FOR COMFORT WILL CONTINUE TO MONITOR.
[2017-03-09] VITALS (67 sets, daily range): BP systolic 71–143; BP diastolic 27–69
--- NOTE | 2017-03-09 01:00 | NUR ---
PT RESTING COMFORTABLY. REPOSITIONED FOR COMFORT WILL CONTINUE TO MONITOR.
--- NOTE | 2017-03-09 03:00 | NUR ---
REASSESSMENT COMPLETED. NO CHANGES AT THIS TIME. ORAL CAR DONE. POSITIONED FOR COMFORT WILL CONTINUE TO MONITOR.
--- NOTE | 2017-03-09 04:34 | NUR ---
PT BECAME ANXIOUS AND WAS FIGHTING THE VENT. TREATED WITH PRN ATIVAN WILL CONTINUE TO MONITOR.
--- NOTE | 2017-03-09 05:00 | NUR ---
CHANGED RT LEG DRESSING PER ORDERS. PT POSITIONED FOR COMFORT WILL CONTINUE TO MONITOR.
[2017-03-09 06:22] LABS: BASOPHILS 0 % (0-2); EOSINOPHILS 0.1 % (0-7); HEMATOCRIT 28.4 % (36.0-48.0); HEMOGLOBIN 9.4 g/dL (12-16); IMMATURE GRANULOCYTES 6.4 % (0-5); LYMPHOCYTES 10.2 % (15-50); MCH 30.2 pg (26.0-34.0); MCHC 33.1 g/dL (31.0-37.0); MCV 91.3 fL (80.0-100.0); MONOCYTES 5.2 % (2-11); NEUTROPHILS 78.1 % (40-80); PLATELET COUNT 559 10x3/uL (130-400); RBC 3.11 10x6/uL (4.00-5.40); WBC 24.4 10x3/uL (4.8-10.8)
[2017-03-09 06:46] LABS: ALBUMIN 2.5 g/dL (3.4-5.0); ALKALINE PHOSPHATASE 62 U/L (46-116); ALT (SGPT) 23 U/L (10-68); BILIRUBIN - TOTAL 0.41 mg/dL (0.2-1.3); CALC OSMOLALITY 283 mosm/kg (275-300); CALCIUM 7.8 mg/dL (8.5-10.1); CARBON DIOXIDE 28.8 mmol/L (21.0-32.0); CHLORIDE - SERUM 102 mmol/L (98-107); CREATININE - SERUM 0.7 mg/dL (0.6-1.3); GLUCOSE 144 mg/dL (74-106); POTASSIUM - SERUM 3.9 mmol/L (3.5-5.1); PROTEIN - SERUM 5.5 g/dL (6.4-8.2); SODIUM 138 mmol/L (136-145); UREA NITROGEN 26 mg/dL (7-18); eGFR NON AFRICAN AMERICAN > 90 mL/min (90-120)
--- NOTE | 2017-03-09 08:15 | NUR ---
PT'S FAMILY CALLED. UPDATED THEM ON PT'S STATUS.
--- NOTE | 2017-03-09 09:30 | NUR ---
PT'S FAMILY CALLED. UPDATED ON PT'S STATUS.
--- NOTE | 2017-03-09 10:17 | NUR ---
Nutrition Follow Up: Pt remains sedated on vent. TF of Pulmocare infusing @ 30 ml/hr. Wt stable. Meds and labs reviewed. Diprivan @ 36 ml/hr providing 950 kcal daily. Rec continue current TF regimen. When Diprivan rate decreases will increase TF rate. RD following.
--- NOTE | 2017-03-09 14:37 | NUR ---
Patient Name: EMERSON TUTTLE Encounter No: [id number] : 1965 Primary Insurance: [employer] P[employer] Anticipated DC Date: Planned Disposition: Home External Planned Provider: : DCP follow-up note: Patient sedated on vent. No family present. No changes to plan. Case management will follow and assist as needed. Catherine Jackson
--- NOTE | 2017-03-09 15:00 | NUR ---
ALL LINES CHANGED OUT ON ALL IVF AND SWITCHED OVER TO RIGHT UPPER ARM MIDLINE.
--- NOTE | 2017-03-09 16:09 | NUR ---
1545 CVL LEFT SUBCLAVIAN DCd AT THIS TIME.. DRESSING APPLIED
--- NOTE | 2017-03-09 19:00 | NUR ---
RE[PRT RECEIVED AND ASSESSMENT COMPLETED. SEE FLOWSHEET FOR FULL DETAILS. PT IS POST OP CABG BY DR LEROY. DEVELOPED PNEUMONIA, AND HAS BEEN INTUBATED. CURRENTLY ON SIMV. PT ALSO ON DOPAMINE AT THIS TIME. WILL ATTEMPT TO WEAN BY MORNING,
--- NOTE | 2017-03-09 21:00 | NUR ---
2100 MEDS GIVEN. DOPAMINE WEANED DOWN TO 4MCG AT THIS TIME. WILL CONTINUE TO MONITOR FOR CHANGES.
--- NOTE | 2017-03-09 23:00 | NUR ---
REASSESSMENT COMPLETED. SEE FLOWSHEET FOR FULL DETAILS. VSS. PT REPOSITIONED AT THIS TIME. DIPRIVAN INCREASED TO 60 MCG FOR PT COMFORT. WILL CONTINUE TO MONITOR
[2017-03-10] VITALS (70 sets, daily range): BP systolic 82–130; BP diastolic 34–63
--- NOTE | 2017-03-10 01:00 | NUR ---
NO CHANGES IN PT STATUS AT THIS TIME. DOPAMINE TITRATED DOWN TO 3.5 AT THIS TIME. WILL CONTINUE TO MONITOR
--- NOTE | 2017-03-10 03:00 | NUR ---
REASSESSMENT COMPLETED. SEE FLOWSHEET FOR FULL DETAILS. COMPLETE BEDBATH AND LINEN CHANGE PROVIDED AT THIS TIME. RADIOLOGY AT BEDSIDE FOR AM IMAGING. WILL MONITOR
--- NOTE | 2017-03-10 05:00 | NUR ---
ABG DRAWN BY RT. PT BEGAN BREATHING RAPIDLY AND APPEARING AGGITATED. PRN ATIVAN GIVEN. RR REGULATED SHORTLY FOLLOWING ADMINISTRATION.
[2017-03-10 07:07] LABS: BASOPHILS 0.1 % (0-2); EOSINOPHILS 0.1 % (0-7); HEMATOCRIT 28.5 % (36.0-48.0); HEMOGLOBIN 9.4 g/dL (12-16); LYMPHOCYTES 13.1 % (15-50); MCV 91.1 fL (80.0-100.0); MEAN PLATELET VOLUME 8.8 fL (7.4-10.4); MONOCYTES 3.3 % (2-11); NEUTROPHILS 78.4 % (40-80); PLATELET COUNT 513 10x3/uL (130-400); RBC 3.13 10x6/uL (4.00-5.40); RDW 14.6 % (11.5-14.5); WBC 26.4 10x3/uL (4.8-10.8)
[2017-03-10 07:22] LABS: ALBUMIN 2.5 g/dL (3.4-5.0); ALKALINE PHOSPHATASE 59 U/L (46-116); ALT (SGPT) 23 U/L (10-68); BILIRUBIN - TOTAL 0.41 mg/dL (0.2-1.3); CALC OSMOLALITY 286 mosm/kg (275-300); CALCIUM 7.7 mg/dL (8.5-10.1); CARBON DIOXIDE 28.7 mmol/L (21.0-32.0); CHLORIDE - SERUM 103 mmol/L (98-107); CREATININE - SERUM 0.7 mg/dL (0.6-1.3); GLUCOSE 122 mg/dL (74-106); MAGNESIUM - SERUM 2.3 mg/dL (1.8-2.4); PHOSPHOROUS 4.8 mg/dL (2.5-4.9); POTASSIUM - SERUM 3.8 mmol/L (3.5-5.1); PROTEIN - SERUM 5.3 g/dL (6.4-8.2); SODIUM 140 mmol/L (136-145); UREA NITROGEN 31 mg/dL (7-18); eGFR NON AFRICAN AMERICAN > 90 mL/min (90-120)
--- NOTE | 2017-03-10 08:40 | NUR ---
DR. LEROY AT BEDSIDE. DECREASED PEEP FROM 8 TO 5.
--- NOTE | 2017-03-10 12:50 | NUR ---
DR. REARDON AT BEDSIDE. PT'S O2 SAT 88-89%. PEEP INC TO 7 FROM 5. O2 SAT INC TO 92%.
--- NOTE | 2017-03-10 13:00 | NUR ---
PT HAD COMPLETE BATH AND LINEN CHANGE. TOLERATED WELL. PT'S HAIR WASHED. BINDER ACCROSS CHEST REMOVED FOR BATH AND THEN REPLACED WHEN FINISHED. NO SKIN BREAKDOWN NOTED TO BILATERAL HEELS AND NO REDNESS NOTED TO BUTTOCK AREA. BILATERAL HEELS BRIDGED AND PT REPOSITIONED FOR COMFORT.
--- NOTE | 2017-03-10 14:47 | NUR ---
PT AGGITATED. WEANING OFF DIPRIVAN PER DR. LEROY REQUEST. PT ABLE TO SHAKE HEAD YES/NO APPROPRIATELY TO QUESTIONS. WILL GIVEN ATIVAN ORDERED FOR PT COMFORT.
[2017-03-10 15:19] LABS: FUNGUS CULTURE RESULT 1 Candida albicans (()); FUNGUS MYCOLOGY CULTURE Final report (())
--- NOTE | 2017-03-10 17:48 | NUR ---
TUBE FEEDINGS INC TO 40CC/HR PER DR. LEROY. LESS THAN 5CC RESIDUAL NOTED
--- NOTE | 2017-03-10 19:00 | NUR ---
REPORT RECEIVED AND ASSESSMENT COMPLETED. PATIENT STILL ON DOPAMINE DRIP AT 2 MCG. WILL CONTINUE TO TITRATE OFF ALLOWED BY B/P. DIPRIVAN NOW RUNNING AT 30. PT IS ABLE TO REPOND TO YES AND KNOW QUESTIONG, BUT IS STILL SEDATED, AND CALM AT THIS TIME. SEE FLOWSHEET FOR FULL ASSESSMENT DETAILS. WILL MONITOR THROUGHOUT SHIFT
--- NOTE | 2017-03-10 21:00 | NUR ---
2100 MEDS GIVEN. NO OTHER CHANGES IN STATUS AT THIS TIME. B/P HANGING IN LOW 90'S SYSTOLIC AT THIS TIME. WILL MONITOR
--- NOTE | 2017-03-10 21:45 | NUR ---
LAB AT BEDSIDE FOR VANC TROUGH DRAW. WILL ADMINISTER DOSE UPON RECEIPT OF RESULTS SHOULD THEY FALL WITHIN PARAMETERS.
--- NOTE | 2017-03-10 23:00 | NUR ---
REASSESSMENT COMPLETED. SEE FLOWSHEET FOR FULL DETAILS. NO OTHER CHANGES AT THIS TIME. VSS. WILL CONTINUE TO MONITOR.
[2017-03-11] VITALS (76 sets, daily range): BP systolic 80–135; BP diastolic 31–67
--- NOTE | 2017-03-11 01:00 | NUR ---
DOPAMINE TITRATED DOWN TO 1.5 AT THIS TIME. WILL CONTINUE TO MONITOR THROUGHOUT SHIFT
--- NOTE | 2017-03-11 03:00 | NUR ---
REASSESSMENT COMPLETED. SEE FLOWSHEET FOR FULL DETAILS. NO OTHER CHANGES IN STATUS AT THIS TIME. VSS. WILL CONTINUE TO MONITOR.
--- NOTE | 2017-03-11 05:00 | NUR ---
ABGS DRAWN BY RESPIRATORY. ROSANNA MARLOWEVLOUEI RESULTS. READIOLOGY CAME THIS AM FOR KUB. NO OTHER CHANGES IN STATUS AT THIS TIME. VSS. WILL CONTINUE TO MONITOR.
--- NOTE | 2017-03-11 07:00 | NUR ---
Received report and assumed care of patient. Patient currently intubated and sedated on ventilator. 7.5 ETT SIMV rate of 10, breathing 24/minute. Patient awakens to touch. Currently on Propofol and fentnyl for sedation. OGT with pulmocare @ 40mls/hr infusing. Abdominal binder in place, TPM wires x 2 secured. TPM VVI rate of 60. Criticore reyes draining clear, yellow urine. TEDS and SCDS in place. Bilateral soft wrist restraints in place. Right upperm arm midline infusing without issue. Site without redness. CHG dressing in place. See shift assessment flowsheet for all findings.
[2017-03-11 07:02] LABS: CALC OSMOLALITY 285 mosm/kg (275-300); CALCIUM 7.6 mg/dL (8.5-10.1); CARBON DIOXIDE 26.5 mmol/L (21.0-32.0); CHLORIDE - SERUM 103 mmol/L (98-107); CREATININE - SERUM 0.7 mg/dL (0.6-1.3); GLUCOSE 114 mg/dL (74-106); MAGNESIUM - SERUM 2.4 mg/dL (1.8-2.4); POTASSIUM - SERUM 3.9 mmol/L (3.5-5.1); SODIUM 139 mmol/L (136-145); UREA NITROGEN 31 mg/dL (7-18); eGFR NON AFRICAN AMERICAN > 90 mL/min (90-120)
[2017-03-11 07:05] LABS: BASOPHILS 0 % (0-2); EOSINOPHILS 0.3 % (0-7); HEMATOCRIT 27.5 % (36.0-48.0); HEMOGLOBIN 9.4 g/dL (12-16); MCH 30.6 pg (26.0-34.0); MCHC 34.2 g/dL (31.0-37.0); MCV 89.6 fL (80.0-100.0); MEAN PLATELET VOLUME 8.9 fL (7.4-10.4); MONOCYTES 4.5 % (2-11); NEUTROPHILS 78.2 % (40-80); PLATELET COUNT 547 10x3/uL (130-400); RBC 3.07 10x6/uL (4.00-5.40); RDW 14.7 % (11.5-14.5); WBC 24.9 10x3/uL (4.8-10.8)
--- NOTE | 2017-03-11 08:05 | NUR ---
in room to see patient, 2 units PRBC stat ordered.
--- NOTE | 2017-03-11 08:20 | NUR ---
Lab in room drawing new type and cross.
--- NOTE | 2017-03-11 09:09 | NUR ---
Spoke with blood bank, ETA on PRBC 10 minutes.
--- NOTE | 2017-03-11 09:15 | NUR ---
Paged Carolyn Santos to request a PIV so that midline may be used for blood trasnfusion after sking Gail TREVIZO okay for PIV. Livier did not answer, paged overhead, waiting for call back.
--- NOTE | 2017-03-11 09:25 | NUR ---
Vanc level high at 21.7, Gail TREVIZO informed, okay to give 1000 vancomycin dose.
--- NOTE | 2017-03-11 09:40 | NUR ---
Blood bank called back, PRBC ready.
--- NOTE | 2017-03-11 10:00 | NUR ---
Reuqested diesel truck crane operator to start PIV so that I can do blood transfusion.
--- NOTE | 2017-03-11 10:15 | NUR ---
Unit 1 of 2 started through midline.
--- NOTE | 2017-03-11 11:02 | NUR ---
Unit 1 of 2 complete, no s/s of reaction. Will continue to monitor closely and initiate unit 2 of 2 shortly.
--- NOTE | 2017-03-11 11:07 | NUR ---
Nutrition Follow Up: Pt continues intubated. Per chart pt is being weaned from vent and Diprivan is being decreased. Per MD order TF rate is being increased to 50 ml/hr. Wt loss noted. No BM. Meds noted including Fentanyl, Lasix, Diprivan @ 14 ml/hr providing 370 kcal/d. Current TF regimen @ 50 ml/hr providing 1800 kcal, 75 g protein. TF + Diprivan providing 2170 kcal. Rec goal rate of TF to be 50 ml/hr. This will adequately meet pt's est nutritional needs. RD following.
--- NOTE | 2017-03-11 11:25 | NUR ---
Unit 2 of 2 started.
--- NOTE | 2017-03-11 12:40 | NUR ---
Unit 2 of 2 completed.
--- NOTE | 2017-03-11 14:00 | NUR ---
No s/s of transfusion reactions. Patients HR decreasing slowly, SBP higher than ealier today. Remains in sinus on CM.
--- NOTE | 2017-03-11 15:30 | NUR ---
Patients sister called, detailed update given. Patients s/o in room with patient.
--- NOTE | 2017-03-11 17:20 | NUR ---
Goal is to decrease/stop propofol and dopamine, use versad and fent for sedation per as SBP allows.
--- NOTE | 2017-03-11 18:20 | NUR ---
complete bed bath and linen change completed. Patient tolerated well and followed instruction.
--- NOTE | 2017-03-11 19:00 | NUR ---
REPORT RECEIVED AND ASSESSMENT COMPLETED. SEE FLOWSHEET FOR FULL DETAILS. PT IS RECEIVED 2 UNITS OF BLOOD DURING DAY SHIFT. B/P IN THE 110'S SYSTOLIC AT THIS TIME. WILL CONTINUE TO TITRATE OFF OF DOPAMINE AND PROPOFOL. VSS AT THIS TIME. WILL CONTINUE TO MONITOR.
--- NOTE | 2017-03-11 21:00 | NUR ---
2100 MEDS GIVEN. NO OTHER UPDATE TO PATIENT STATUS AT THIS TIME. PRN VERSED BEING GIVEN FOR AGITATION. WILL CONTINUE TO MONITOR.
--- NOTE | 2017-03-11 23:00 | NUR ---
REASSESSMENT COMPLETED. SEE FLOWSHEET FOR FULL DETAILS. VSS. WILL CONTINUE TO MONITOR.
[2017-03-12] VITALS (48 sets, daily range): BP systolic 88–132; BP diastolic 42–78
--- NOTE | 2017-03-12 01:00 | NUR ---
DESPITE PRN VERSED, PT THRASHES IN BED. FENTANYL TO BE INCREASED. PT MANAGED TO LOOSEN OGT. PLACEMENT CHECKED, AND RESECURED. FEEDING REINITIATED. NO OTHER CHANGES AT THIS TIME. WILL MONITOR
--- NOTE | 2017-03-12 03:00 | NUR ---
REASSESSMENT COMPLETED. SEE FLOWSHEET FOR FULL DETAILS. PT STILL THRASHING IN BED. MONITORING CLOSELY. WILL CONTINUE TO ADMINISTER PRN MEDICATIONS SOON POSSIBLE.
--- NOTE | 2017-03-12 05:00 | NUR ---
DURING 0400 HOUR, RADIOLOGY AT BEDSIDE. ATTEMPTED AM IMAGING. PT THRASHED IN BED AND HAD TO BE HELD DOWN. PRN MEDICATION HAD BEEN GIVEN SHORTLY PRIOR. NO OTHER CHANGES AT THIS TIME. VSS. WILL MONITOR.
[2017-03-12 06:32] LABS: BASOPHILS 0 % (0-2); EOSINOPHILS 0 % (0-7); HEMATOCRIT 33.1 % (36.0-48.0); HEMOGLOBIN 11.2 g/dL (12-16); IMMATURE GRANULOCYTES 1.6 % (0-5); LYMPHOCYTES 8.1 % (15-50); MCH 29.4 pg (26.0-34.0); MCHC 33.8 g/dL (31.0-37.0); MCV 86.9 fL (80.0-100.0); MEAN PLATELET VOLUME 8.9 fL (7.4-10.4); MONOCYTES 2.9 % (2-11); NEUTROPHILS 87.4 % (40-80); PLATELET COUNT 463 10x3/uL (130-400); RBC 3.81 10x6/uL (4.00-5.40); RDW 15.3 % (11.5-14.5)
[2017-03-12 06:44] LABS: CALC OSMOLALITY 281 mosm/kg (275-300); CALCIUM 7.6 mg/dL (8.5-10.1); CARBON DIOXIDE 25.7 mmol/L (21.0-32.0); CHLORIDE - SERUM 105 mmol/L (98-107); CREATININE - SERUM 0.6 mg/dL (0.6-1.3); GLUCOSE 117 mg/dL (74-106); MAGNESIUM - SERUM 2.3 mg/dL (1.8-2.4); PHOSPHOROUS 4.7 mg/dL (2.5-4.9); POTASSIUM - SERUM 4.1 mmol/L (3.5-5.1); SODIUM 137 mmol/L (136-145); UREA NITROGEN 31 mg/dL (7-18); eGFR NON AFRICAN AMERICAN > 90 mL/min (90-120)
--- NOTE | 2017-03-12 07:00 | NUR ---
REC]'D REPORT AND RESUMED CARE, ETT TO VENTILATION AND SECURED, SIMV MODE IN USE WITH 40% FIO2, SAT 98%, OGT WITH PULMOCARE INUSING AT 40 CC/HR, RESIDUAL CHECK, 15 CC, ABDOMINAL BINDER IN PLACE WITH MID STERNAL AND SUB STERNAL DRESSINGS IN PLACE, CDI, RIGHT LEG HARVEST SITES X3 WITH JOSE, OPEN TO AIR NO EDEMA NOTED, GERARDO TO GRAVITY WITH YELLOW DRAINAGE TO CONTAINER, TEDS/SCD'S ON B/L, ASSESSMENT COMPLETE PER FLOWSHEET, SEDATION IN USE, EYES OPEN DOES NOT FOLLOW COMMANDS, B/L WRIST RESTRAINTS IN USE. REPOSITIONED UP AND TO BACK
--- NOTE | 2017-03-12 08:30 | NUR ---
VENT ALARMING, THRASHING WITH LEGS HANGING OVER SIDE OF BED, ETT DISCONNECTED, RECONNECTED, VERSED 2MG IVP GIVEN PER PRN MED LIST, REPOSITIONED BACK IN BED
--- NOTE | 2017-03-12 09:15 | NUR ---
VENT ALARMING, THRASING WITH LEGS OVER SIDE OF BED, ETT DISCONNECTED, HR 122, RESP 42, REPOSITIONED, KICKING LEGS AT NURSES, REDIRECTED
--- NOTE | 2017-03-12 10:35 | NUR ---
NIF AND VC COMPLETED BY RT
--- NOTE | 2017-03-12 11:00 | NUR ---
FAILED LEAK TEST, WILL NOT BE EXTUBATED TODAY, ASSESSMENT COMPLETED PER FLOWSHEET, SIGNIFICANT OTHER AT BEDSIDE, NO ACUTE CHANGE FROM PREVIOUS
--- NOTE | 2017-03-12 11:50 | NUR ---
SWEATING, TURNED ON FAN, SIGNIFICANT OTHER AT BEDSIDE, NOOTHER NEEDS AT THIS TIME
--- NOTE | 2017-03-12 12:24 | NUR ---
PC FROM SON, PASSWORD OBTAINED, STATUS UPDATED, VOICES NO OTHER NEEDS AT THIS TIME
--- NOTE | 2017-03-12 13:22 | NUR ---
PT HERE FOR ROM EXERCISES, BED BATH AND LINEN CHANGE COMPLETED, REPOSITIONED TO LEFT SIDE WITH PILLOW PROPPED TO BACK AND HEELS FLOATED
--- NOTE | 2017-03-12 15:00 | NUR ---
VENT ALARMING, TO BEDSIDE, RESP 42, NOT EASLY CONSOLED, ASSESSMENT COMPLETE PER FLOWSHEET, NO ACUTE CHANGE FROM PREVIOUS
--- NOTE | 2017-03-12 17:15 | NUR ---
VENT ALARMING RESP 36, PROPOFAL TITRAITED TO 15 MCG
--- NOTE | 2017-03-12 18:10 | NUR ---
LEGS OVER SIDE OF BED, THRASING, REPOSITIONED, FAN ON COLD TOWEL TO HEAD, RESTRAINTS SECURED
--- NOTE | 2017-03-12 19:00 | NUR ---
Received patient resting in bed with eyes open on vent, assessment completed per flowsheet. Patient is awake and alert, follows commands and nods appropriately to questions. Eyes PERRLA @ 4mm with brisk response, sclera is reddened. ETT 7.5 @ 23cm noted, OGT with Pulmocare @ 50ml/hr. S1/S2 noted NSR on telemetry with HR 85, rhythmic and regular. Lung sounds clear bilateral upper and mid with diminished lower, Vent settings SIMV r-10 v-600 40% P-7 P-15. Midsternal incision dressing CDI, no swelling or drainage noted. Substernal dressing CDI, no swelling or drainage noted. Abdomen is distended and soft with bowel sounds hypoactive x4, non-tender. [place] secured with clear yellow urine noted in collection. Full ROM all extremities with slight weakness noted, all pulses palpable with cap refill < 3 sec. Midline catheter noted R AC, patent with Plasmalyte @ 30ml/hr / Fentanyl @ 750 mcg/hr / Propofol @ 15 mcg/kg/min infusing. TPM in place with wires secured, VVI 60 mA 10.0 Sens 2.0. Oral care/suctioning provided, patient repositioned for comfort. No further needs at this time, all VSS and will continue to monitor.
--- NOTE | 2017-03-12 23:00 | NUR ---
Reassessment completed per flowsheet, patient resting in bed with eyes closed. Patient responds to commands, affect is anxious. Eyes PERRLA @ 4mm with brisk response. S1/S2 noted NSR on telemetry with HR 74, rhythmic and regular. Vent settings unchanged from previous assessment with O2 sat 96%, lung sounds clear bilateral upper and mid with diminished lower. Midline incision dressing CDI with no swelling/bleeding noted, Substernal incision dressing CDI with no bleeding/swelling noted. TPM settings unchanged, wires secured. Abdominal binder secured over upper chest. Oral care/suctioning provided, patient repositioned for comfort. Denies pain or other needs at this time, all VSS and will continue to monitor.
[2017-03-13] VITALS (21 sets, daily range): BP systolic 80–117; BP diastolic 38–60
--- NOTE | 2017-03-13 01:00 | NUR ---
Patient resting in bed with eyes open, affect appears anxious. Patient attempting to speak but prevented by ETT. Discussed weaning procedure and plans for patient, patient appears calmer. Midsternal incision dressing CDI, Substernal Incision dressing CDI. All pulses palpable with cap refill < 3 sec, skin warm/dry to touch. Denies pain or other needs at this time, all VSS and will continue to monitor.
--- NOTE | 2017-03-13 03:00 | NUR ---
Reassessment completed per flowsheet, patient resting in bed with eyes open. Patient cooperative but anxious, follows commands. S1/S2 noted NSR on telemetry with HR 81, rhythmic and regular. Vent settings unchanged from prevous assessment, lung sounds clear bilateral upper and mid with diminished lower and O2 sat 96%. Midsternal dressing CDI with no bleeding/drainage noted, Subternal dressing CDI with no bleeding/drainage noted. TPM wires secured. All pulses palpable with cap refill < 3 sec, skin warm/dry to touch. Oral care/suctioning provided, patient repositioned for comfort. Patient denies pain or other needs at this time, all VSS and will continue to monitor.
--- NOTE | 2017-03-13 05:00 | NUR ---
Patient resting in bed with eyes closed, vent settings unchanged from previous assessment. Midline incision dressing CDI, no swelling or bleeding/drainage noted. Substernal dressing CDI, no swelling or bleeding drainage noted. All pulses palpable with cap refill < 3 sec, skin warm/dry to touch. Patient denies pain or other needs at this time, all VSS and will continue to monitor.
--- NOTE | 2017-03-13 06:15 | NUR ---
Lab notified of samples to be collected, notified that software test technician is on the way.
--- NOTE | 2017-03-13 06:30 | NUR ---
Lab at bedside to collect patient sample, will await results.
--- NOTE | 2017-03-13 07:00 | NUR ---
REC'D REPORT AND RESUMED CARE, ASSESSMENT COMPLETE PER FLOWSHEET, VSS, CONTNUES ON SEDATION, AWAKE, FOLLOWS COMMANDS
[2017-03-13 07:02] LABS: BASOPHILS 0 % (0-2); EOSINOPHILS 0 % (0-7); HEMATOCRIT 32.8 % (36.0-48.0); IMMATURE GRANULOCYTES 1.2 % (0-5); LYMPHOCYTES 3.4 % (15-50); MCH 29.7 pg (26.0-34.0); MCHC 33.5 g/dL (31.0-37.0); MCV 88.6 fL (80.0-100.0); MEAN PLATELET VOLUME 9.1 fL (7.4-10.4); MONOCYTES 3.6 % (2-11); NEUTROPHILS 91.8 % (40-80); PLATELET COUNT 487 10x3/uL (130-400); RDW 15.1 % (11.5-14.5); WBC 24.9 10x3/uL (4.8-10.8)
--- NOTE | 2017-03-13 07:30 | NUR ---
CHANGED TO CPAP BY RT
[2017-03-13 07:43] LABS: CALC OSMOLALITY 285 mosm/kg (275-300); CALCIUM 8.1 mg/dL (8.5-10.1); CARBON DIOXIDE 24.6 mmol/L (21.0-32.0); CHLORIDE - SERUM 104 mmol/L (98-107); CREATININE - SERUM 0.7 mg/dL (0.6-1.3); GLUCOSE 132 mg/dL (74-106); MAGNESIUM - SERUM 2.7 mg/dL (1.8-2.4); PHOSPHOROUS 4.7 mg/dL (2.5-4.9); POTASSIUM - SERUM 4.1 mmol/L (3.5-5.1); SODIUM 137 mmol/L (136-145); UREA NITROGEN 40 mg/dL (7-18); eGFR NON AFRICAN AMERICAN > 90 mL/min (90-120)
--- NOTE | 2017-03-13 08:00 | NUR ---
DR LEROY AT BEDSIDE, NEW ORDER GIVEN TO TITRATE, SEDATION IN HALF, FENTANYL TO 300 MCG
--- NOTE | 2017-03-13 09:30 | NUR ---
SUB STERNAL DRESSING CHANGE, COMPLETED, FENTYNAL TITRATED TO 200 MCG, PROPOFAL TO 5 MCG
--- NOTE | 2017-03-13 10:25 | NUR ---
NUTRITION F/U CHART REVIEWED, APOLINAR @ 2.2 CC/HR. PULMOCARE CURRENTLY OFF FOR POSSIBLE EXTUBATION PER NURSING REPORT. RD FOLLOWING
--- NOTE | 2017-03-13 10:28 | NUR ---
VANC 1.25GM, IVPB, INITIATED, PER MAR FLOWSHEET
--- NOTE | 2017-03-13 10:55 | NUR ---
PC TO NUHA MARIAA TUTTLE, CONSENT GIVEN FOR BRONCOSCOPY, WITNESSED BY ABDULKADIR CADENA RN,
--- NOTE | 2017-03-13 11:00 | NUR ---
CONITNUES ON VENT PROPOFAL SEDATION OFF
--- NOTE | 2017-03-13 11:20 | NUR ---
BRONCH COMPLETED, EXTUBATED TO 4L NC, ORAL CARE AND SUCTION COMPLETED, DR STEVENSON AT BEDSIDE
--- NOTE | 2017-03-13 12:50 | NUR ---
OOB TO CHAIR WITH PERSONNEL X3, NAUSEATED, ZOFRAN 4MG IVP, GIVEN PER MAR FLOWSHEET
--- NOTE | 2017-03-13 15:00 | NUR ---
BTB WITH ASSIST FROM PT, VSS, DENIES PAIN AT THIS TIME, ASSESSMENT COMPLETE PER FLOWSHEET
--- NOTE | 2017-03-13 17:00 | NUR ---
BLADDER TRAINING BEGAN, GERARDO CLAMPED,
--- NOTE | 2017-03-13 18:00 | NUR ---
FAMILY AT BEDSIDE, STATUS UPDATED, VOICES NO NEEDS AT THIS TIME, PATIENT INCONTINENT OF SMALL DIARRHEA STOOL, SKINCARE AND PARTIAL LINEN CHANGE COMPLETED
--- NOTE | 2017-03-13 19:15 | NUR ---
RECEIVED CARE OF PT, ASSESSMENT PER FLOWSHEET. PT RESTING IN BED, AROUSES EASILY TO VOICE, ANSWERS QUESTIONS APPROPRIATELY, HOARSENESS NOTED WITH SPEAKING. MIDSTERNAL AND SUBSTERNAL DRESSINGS CDI, ABD BINDER IN PLACE, TPM WIRES SECURED, VVI AT 60, HR SR ON CM, RT LEG INCISIONS TRESTLE BUILDER, WOUND EDGES APPROXIMATED WITH JOSE, PPP, CRITICORE GERARDO PATENT, RT AC MIDLINE PATENT, DRESSING CDI.
--- NOTE | 2017-03-13 19:32 | NUR ---
ORAL CARE PERFORMED WITH PERIDEX ORDERED
--- NOTE | 2017-03-13 22:20 | NUR ---
PT SIGNIFICANT OTHER IN FOR VISITATION, PT VISITING EASILY IN NO APPARENT DISTRESS, BOTH DENY ANY NEEDS AT THIS TIME.
--- NOTE | 2017-03-13 23:15 | NUR ---
REASSESSMENT PER FLOWSHEET, NO ACUTE CHANGES NOTED AT THIS TIME. HR SR ON CM, CONT TO MONITOR.
[2017-03-14] VITALS (24 sets, daily range): BP systolic 92–134; BP diastolic 42–78
--- NOTE | 2017-03-14 01:10 | NUR ---
GERARDO CARE PROVIDED, ORAL CARE DONE, POSITIONED FOR COMFORT, HR SR ON CM, VSS.
--- NOTE | 2017-03-14 03:15 | NUR ---
REASSESSMENT PER FLOWSHEET, POSITIONED FOR COMFORT, SR ON CM, VSS.
[2017-03-14 07:21] LABS: BASOPHILS 0 % (0-2); EOSINOPHILS 0 % (0-7); HEMATOCRIT 36.7 % (36.0-48.0); HEMOGLOBIN 11.9 g/dL (12-16); LYMPHOCYTES 2.6 % (15-50); MCH 29.5 pg (26.0-34.0); MCHC 32.4 g/dL (31.0-37.0); MCV 91.1 fL (80.0-100.0); MEAN PLATELET VOLUME 9.1 fL (7.4-10.4); MONOCYTES 3.8 % (2-11); NEUTROPHILS 92.6 % (40-80); PLATELET COUNT 502 10x3/uL (130-400); RBC 4.03 10x6/uL (4.00-5.40); RDW 14.8 % (11.5-14.5); WBC 21.3 10x3/uL (4.8-10.8)
[2017-03-14 07:26] LABS: CALC OSMOLALITY 286 mosm/kg (275-300); CALCIUM 8.4 mg/dL (8.5-10.1); CARBON DIOXIDE 26.2 mmol/L (21.0-32.0); CHLORIDE - SERUM 105 mmol/L (98-107); CREATININE - SERUM 0.6 mg/dL (0.6-1.3); GLUCOSE 118 mg/dL (74-106); POTASSIUM - SERUM 4.7 mmol/L (3.5-5.1); SODIUM 139 mmol/L (136-145); UREA NITROGEN 36 mg/dL (7-18); eGFR NON AFRICAN AMERICAN > 90 mL/min (90-120)
--- NOTE | 2017-03-14 07:56 | NUR ---
DR LEROY NOTIFIED REGARDING PT PULLING MIDLINE IV OUT AND PERIPHERAL IV STARTED, NO FURTHER ORDERS RECEIVED AT THIS TIME.
--- NOTE | 2017-03-14 08:06 | NUR ---
INCONTINENT BOWEL MOVEMENT NOTED AT THIS TIME. PIERCE CARE AND GERARDO CARE PROVIDED VIA TOTAL ASSIST. PT ABLE TO ASSIST WITH TURNING. NO ACUTE DISTRESS NOTED. WILL CONTINUE PLAN FO CARE.
--- NOTE | 2017-03-14 09:59 | NUR ---
PASSWORD VERIFIED. UPDATE GIVEN TO FAMILY.
--- NOTE | 2017-03-14 10:36 | NUR ---
UP IN CHAIR BESIDE BED AT THIS TIME. NOTED COMPLAINT OF NAUSEA, PRN ZOFRAN ADMIN AT THIS TIME. PT DENIES ANY FURTHER NEEDS. WILL CONTINUE PLAN OF CARE.
--- NOTE | 2017-03-14 11:04 | NUR ---
NOTED PTS HEART RHYTHM TO BE SINUS, NOW WITH PAC AND PVC NOTED. DR LEROY NOTIFIED. ONE TIME ORDER FOR 400MG CORDARONE NOW ORDERED. ORDER PLACED.
--- NOTE | 2017-03-14 11:56 | NUR ---
NOTED STAFF HAS BEEN BLADDER TRAINING PT BY CLAMPING GERARDO. PT HAS BEEN ABLE TO NOTIFY STAFF WHEN FEELS URGE TO URINATE. GERARDO DC AT THIS TIME PER ORDERS. NO ACUTE DISTRESS NOTED. WILL CONTINUE PLAN OF CARE.
--- NOTE | 2017-03-14 13:30 | NUR ---
WALKED 44 FEET WITH PHYSICAL THERAPY AND NURSING STAFF.
--- NOTE | 2017-03-14 15:25 | NUR ---
UP IN BED AT THIS TIME WATCHING TV. DENIES ANY NEEDS. NO ACUTE DISTRESS NOTED. WILL CONTINUE PLAN OF CARE.
--- NOTE | 2017-03-14 17:26 | NUR ---
LYING IN BED RESTING AT THIS TIME. RESPIRATIONS STEADY AND UNLABORED. NO ACUTE DISTRESS NOTED. WILL CONTINUE PLAN FO CARE.
--- NOTE | 2017-03-14 19:40 | NUR ---
PT VOIDED LARGE LIQUID BROWN BM VIA BEDPAN, PERICARE PROVIDED, COMPLETE BATH AND LINEN CHANGE DONE.
--- NOTE | 2017-03-14 20:09 | NUR ---
PT FATHER CALLED, PASSWORD PROVIDED, UPDATE GIVEN AND ALL QUESTIONS ANSWERED.
--- NOTE | 2017-03-14 21:15 | NUR ---
PT DAUGHTER IN FOR VISITATION, UPDATE GIVEN, PT VISITING EASILY IN NO APPARENT DISTRESS, VSS.
--- NOTE | 2017-03-14 23:00 | NUR ---
REASSESSMENT PER FLOWSHEET, NO ACUTE CHANGES NOTED. PT SIGNIFICANT OTHER AT BEDSIDE, ALL DENY ANY NEEDS, SR ON CM.
[2017-03-15] VITALS (25 sets, daily range): BP systolic 98–148; BP diastolic 46–83
--- NOTE | 2017-03-15 01:42 | NUR ---
PT SITTING UP IN BED WATCHING TV, NO S/S OF DISTRESS NOTED, DENIES ANY NEEDS AT THIS TIME, VSS.
--- NOTE | 2017-03-15 03:15 | NUR ---
REASSESSMENT PER FLOWSHEET, NO CHANGES NOTED. ASSISTED PT TO COMFORTABLE POSITION UP IN BED, HR SR, TPM V-SENSING ONLY, ALL OTHER VSS.
--- NOTE | 2017-03-15 05:42 | NUR ---
PT RESTING IN BED WITH EYES CLOSED, BREATHING EVEN AND UNLABORED. VSS
[2017-03-15 07:10] LABS: BASOPHILS 0 % (0-2); EOSINOPHILS 0.1 % (0-7); HEMATOCRIT 35.4 % (36.0-48.0); HEMOGLOBIN 11.3 g/dL (12-16); IMMATURE GRANULOCYTES 0.6 % (0-5); LYMPHOCYTES 10.1 % (15-50); MCH 29.1 pg (26.0-34.0); MCHC 31.9 g/dL (31.0-37.0); MCV 91.2 fL (80.0-100.0); MEAN PLATELET VOLUME 8.9 fL (7.4-10.4); MONOCYTES 7.4 % (2-11); NEUTROPHILS 81.8 % (40-80); PLATELET COUNT 536 10x3/uL (130-400); RBC 3.88 10x6/uL (4.00-5.40); RDW 14.5 % (11.5-14.5); WBC 17.5 10x3/uL (4.8-10.8)
[2017-03-15 07:19] LABS: CALC OSMOLALITY 284 mosm/kg (275-300); CALCIUM 8.2 mg/dL (8.5-10.1); CARBON DIOXIDE 28.8 mmol/L (21.0-32.0); CHLORIDE - SERUM 103 mmol/L (98-107); GLUCOSE 101 mg/dL (74-106); SODIUM 139 mmol/L (136-145); UREA NITROGEN 33 mg/dL (7-18); eGFR NON AFRICAN AMERICAN 80 mL/min (90-120)
[2017-03-15 07:20] LABS: CREATININE - SERUM 0.8 mg/dL (0.6-1.3)
--- NOTE | 2017-03-15 07:25 | NUR ---
CONTINENT VOID NOTED AT THIS TIME VIA BEDPAN. APPROX 500ML ARAM COLORED URINE. TOTAL BED CHANGE PROVIDED. NO ACUTE DISTRESS NOTED. WILL CONTINUE PLAN OF CARE.
--- NOTE | 2017-03-15 09:20 | NUR ---
UP IN CHAIR AT THIS TIME. CHAIR ALARM ON. NO ACUTE DISTRESS NOTED. WILL CONTINUE PLAN OF CARE.
[2017-03-15 09:47] LABS: VANCOMYCIN - TROUGH 18.6 ug/mL (10.0-20.0)
[2017-03-15 10:06] LABS: POTASSIUM - SERUM 4.2 mmol/L (3.5-5.1)
--- NOTE | 2017-03-15 10:12 | NUR ---
PT NOTED TO HAVE A RUN OF VTAC. POTASSIUM RECHECKED AND NOTED AT 4.2. DR LEROY NOTIFIED.
--- NOTE | 2017-03-15 11:06 | NUR ---
IV TO LT AC NOTED TO LEAK AROUND CATHETER SITE THEREFORE DC, CATHETER TIP INTACT. NEW IV PLACED RT FOREARM, 20G X 2 ATTEMPT. FLUSHES WELL. NO ACUTE DISTRESS NOTED. WILL CONTINUE PLAN OF CARE.
--- NOTE | 2017-03-15 13:23 | NUR ---
NOTED PT STATES SHE IS UPSET AND WANTS TO GO HOME. WHEN ASKING PT WHAT IS WRONG SHE STATES SHE WANTS A REGULAR COKE. PT IS ON NECTAR THICK FLUIDS FOR SAFETY PER SPEECH EVAL. PT RECIEVED NECTAR THICK COKE PREPARED BY THIS NURSE AND PT STATES SHE WILL NOT DRINK NECTAR THICK AND THAT IS WHY SHE WANTS TO GO HOME. EXPLAINED TO PT THAT FOR HER SAFETY AT THIS TIME SHE IS ON NECTAR THICK FLUIDS. NO ACUTE DISTRESS NOTED. DR LEROY NOTIFIED. WILL CONTINUE TO OBSERVE.
--- NOTE | 2017-03-15 15:17 | NUR ---
UP IN CHAIR BESIDE BED AT THIS TIME VISITING WITH FAMILY. NO ACUTE DISTRESS NOTED. WILL CONTINUE PLAN OF CARE.
--- NOTE | 2017-03-15 15:41 | NUR ---
OFFERED TO ASSIST PT BACK TO BED FROM CHAIR BESIDE BED. PT STATES SHE WANTED TO STAY IN CHAIR. WILL CONTINUE PLAN OF CARE.
--- NOTE | 2017-03-15 16:31 | NUR ---
UP IN CHAIR IN ROOM VISITING WITH DAUGHTER. PT DENIES ANY NEEDS. NO ACUTE DISTRESS NOTED. WILL CONTINUE PLAN OF CARE.
--- NOTE | 2017-03-15 17:42 | NUR ---
VISITING WITH FAMILY. NO ACUTE DISTRESS NOTED. NO AGGITATION NOTED. WILL CONTINUE PLAN OF CARE.
--- NOTE | 2017-03-15 19:00 | NUR ---
Received patient sitting up in chair at bedside, assessment completed per flowsheet. Patient AO x4, calm and cooperative. Patient affect is withdrawn. Eyes PERRLA @ 4mm with brisk response, sclera is reddened. S1/S2 noted NSR on telemetry with HR 99, rhythmic and regular. TPM in use with wires intact/secured and Ventricular sensing, VVI 60 mA-10.0 Sens-2.0. Breathing is slightly shallow and unlabored on room air with O2 sat 94%, lung sounds clear bilateral upper and mid with diminished lower. Midsternal incision dressing CDI with no bleeding/drainage noted, Substernal incision dressing CDI with no bleeding/drainage noted. Abdomen is slightly distended and soft with bowel sounds active x4, non-tender. Patient ambulates to commode with assistance, unsteady gait noted. Full ROM all extremities with all pulses palpable, cap refill < 3 sec with skin warm/dry to touch. 20g PIV R forearm saline locked, patent with dressing intact. Patient denies pain or other needs at this time, all VSS and will continue to monitor.
--- NOTE | 2017-03-15 21:00 | NUR ---
Visitor at bedside, all questions answered to satisfaction. Repositioned for comfort, no further needs at this time.
--- NOTE | 2017-03-15 21:50 | NUR ---
Patient pulled out IV when returning to bed. Resited to R wrist attempt x3, patent and saline locked.
--- NOTE | 2017-03-15 23:00 | NUR ---
Reassessment completed per flowsheet, patient resting in bed with eyes open. Patient AO x4, calm and cooperative. S1/S2 noted NSR on telemetry with HR 84, rhythmic and regular. TPM settings unchanged, dressing CDI with wires intact. Breathing is slightly shallow/unlabored on 2L via NC O2 sat 98%, lung sounds clear bilateral upper and mid with diminished lower. Midsternal dressing CDI with no bleeding/dressing noted, substernal dressing CDI no bleeding/drainage noted. All pulses palpable with cap refill < 3 sec, skin warm/dry to touch. Denies pain or other needs at this time, all VSS and will continue to monitor.
[2017-03-16] VITALS (25 sets, daily range): BP systolic 95–141; BP diastolic 50–75
--- NOTE | 2017-03-16 | NUR ---
Patient IV removed, resited with attempt x6 to R AC. Vancomycin infusing and will saline lock when completed.
--- NOTE | 2017-03-16 00:30 | NUR ---
Substernal dressing changed, TPM wire sites intact. Patient tolerated well, no further needs at this time. All VSS and will continue to monitor.
--- NOTE | 2017-03-16 01:00 | NUR ---
Patient resting in bed with eyes closed, breathing is shallow and unlabored on 2L via NC. Midsternal/Substernal dressing CDI with no bleeding/drainage noted, TPM wires secured and covered by dressing. Denies pain or other needs at this time, all VSS and will continue to monitor.
--- NOTE | 2017-03-16 03:00 | NUR ---
Reassessment completed per flowsheet, patient resting in bed with eyes closed. Patient AO x4, calm and cooperative. S1/S2 noted NSR on telemetry with HR 75, rhythmic and regular. TPM settings unchanged, wires intact/secured. Midsternal dressing CDI with no bleeding/drainage noted, Substernal dressing CDI with no bleeding/drainage noted. Breathing is slightly shallow and unlabored on 2L via NC with O2 sat 95%, Lung sounds clear bilateral upper and mid with diminished lower. All pulses palpable with cap refill < 3 sec, skin warm/dry to touch. Patient denies pain or other needs at this time, all VSS and will continue to monitor.
--- NOTE | 2017-03-16 05:00 | NUR ---
Patient taken to radiology for PA/Lat, tolerated well. Returned to bed and reconnected to monitors, denies pain or other needs at this time. All VSS and will continue to monitor.
[2017-03-16 06:24] LABS: BASOPHILS 0 % (0-2); HEMATOCRIT 35.9 % (36.0-48.0); HEMOGLOBIN 11.3 g/dL (12-16); LYMPHOCYTES 32.2 % (15-50); MCH 28.6 pg (26.0-34.0); MCHC 31.5 g/dL (31.0-37.0); MCV 90.9 fL (80.0-100.0); MEAN PLATELET VOLUME 8.6 fL (7.4-10.4); MONOCYTES 9.2 % (2-11); NEUTROPHILS 56.6 % (40-80); PLATELET COUNT 482 10x3/uL (130-400); RBC 3.95 10x6/uL (4.00-5.40); RDW 14.3 % (11.5-14.5); WBC 13.5 10x3/uL (4.8-10.8)
[2017-03-16 06:40] LABS: CALC OSMOLALITY 284 mosm/kg (275-300); CALCIUM 7.7 mg/dL (8.5-10.1); CARBON DIOXIDE 27.9 mmol/L (21.0-32.0); CHLORIDE - SERUM 103 mmol/L (98-107); CREATININE - SERUM 0.7 mg/dL (0.6-1.3); GLUCOSE 86 mg/dL (74-106); POTASSIUM - SERUM 3.4 mmol/L (3.5-5.1); SODIUM 141 mmol/L (136-145); UREA NITROGEN 27 mg/dL (7-18); eGFR NON AFRICAN AMERICAN > 90 mL/min (90-120)
--- NOTE | 2017-03-16 07:15 | NUR ---
REPORT RECIEVED FROM CURTAIN FITTER NURSE. PT RESTING IN BED QUIELTLY. NO S/SX OF ACUTE DISTRESS NOTED. VSS. FULL ASSESSMENT COMPLETE PER FLOWSHEET. REFER FOR DETAILS. CALL LIGHT IN REACH. BED IN LOW POSITION. WILL CONT TO ASSESS.
--- NOTE | 2017-03-16 09:00 | NUR ---
AT BEDSIDE. UPDATE PROVIDED.
--- NOTE | 2017-03-16 10:44 | NUR ---
Nutrition Follow Up: Pt was with family member and appeared upset at the time of RD visit. Interview deferred. Pt is eating 18% meal avg on a regular [facility] soft diet with nectar thick liquids. +BM 03/16/17. Wt loss noted. Labs reviewed. Meds noted including Lasix. Rec continue current diet per TELETYPE OR VARITYPE KEYBOARD OPERATOR recs. Will continue to provide selective menus and honor food preferences. RD following.
--- NOTE | 2017-03-16 11:00 | NUR ---
REASSESSMENT COMPLETE PER FLOWSHEET. NO CHANGES NOTED.
--- NOTE | 2017-03-16 13:00 | NUR ---
UP WALKING DOWN MUNOZ WITH , VSS. WILL MONITOR.
--- NOTE | 2017-03-16 15:00 | NUR ---
REASSESSMENT COMPLETE PER FLOWSHEET. NO CHANGES NOTED.
--- NOTE | 2017-03-16 17:00 | NUR ---
TEARFUL AND HOMESICK. PT STATES SHE IS READY TO GO HOME. SPOKE TO PT ABOUT D/C PLAN AND HER NEED TO REMAIN IN THE HOSPITAL UNTIL DR. LEROY STATES SHE IS READY TO GO HOME.
--- NOTE | 2017-03-16 19:00 | NUR ---
Received patient laying in bed with eyes open watching TV, assessment completed per flowsheet. Patient AO x4, calm and cooperative but "wants to go home". Eyes PERRLA @ 4mm with brisk response, sclera is white. S1/S2 noted NSR on telemetry with HR 94, rhythmic and regular. Breathing is shallow and unlabored on room air with O2 sat 95%, Lung sounds clear bilateral upper and mid with diminished lower. Midsternal incision dressing CDI, no bleedin/drainage noted. Substernal dressing CDI, TPM wires intact/secured with no bleeding/drainage noted. Patient ambulates to bathroom with assistance, no difficulties reported. Full ROM all extremities with unsteady gait noted, all pulses palpable with cap refill < 3 sec. 22g PIV noted R AC, patent and saline locked. Incision sites x3 noted R leg with castro intact, well approximated with no drainage noted and dressing R lower leg site. Patient denies pain or other needs at this time, all VSS and will continue to monitor.
--- NOTE | 2017-03-16 21:00 | NUR ---
No visitors at this time, patient assisted chair to finish dinner tray. Patient denies pain at this time, no further needs and will continue to monitor.
--- NOTE | 2017-03-16 23:00 | NUR ---
Reassessment completed per flowsheet, patient resting in bed with eyes closed. S1/S2 noted NSR on telemetry with HR 85, rhythmic and regular. Breathing is slightly shallow and unlabored on room air with O2 sat 94%, lung sounds clear bilateral upper and mid with diminished lower. Midsternal incision dressing CDI, no bleeding/drainage noted. Substernal incision dressing CDI, TPM wires secure/intact with no bleeding/drainage noted. All pulses palpable with cap refill < 3 sec, skin warm/dry to touch. Patient denies pain or other needs at this time, all VSS and will continue to monitor.
[2017-03-17] VITALS (12 sets, daily range): BP systolic 95–138; BP diastolic 49–74
--- NOTE | 2017-03-17 01:00 | NUR ---
Patient resting in bed with eyes closed, breathing is shallow and unlabored on room air with O2 sat 95%. Midsternal/Substernal dressing CDI, TPM wires intact/secured. Denies pain or other needs at this time, all VSS and will continue to monitor.
--- NOTE | 2017-03-17 03:00 | NUR ---
Reassessment completed per flowsheet, patient resting in bed with eyes closed. Patient AO x4, calm and cooperative stating she "wants to go home". S1/S2 noted NSR on telemetry with HR 84, rhythmic and regular. Breathing is slightly shallow on room air with O2 sat 93%, lung sounds clear bilateral upper and mid with diminished lower. Midsternal dressing CDI with no bleeding/drainage noted, Substernal dressing CDI with TPM wires intact/secured. R leg incision sites x3 well approximated with castro present, R lower leg dressing CDI. All pulses palpable with cap refill < 3 sec, skin warm/dry to touch. Patient denies pain or other needs at this time, all VSS and will continue to monitor.
--- NOTE | 2017-03-17 05:00 | NUR ---
Patient down to radiology for PA/Lat, no difficulties. Patient returned to bed, full linen change performed. Patient denies pain or other needs at this time, all VSS and will continue to monitor.
--- NOTE | 2017-03-17 06:44 | NUR ---
Lab at bedside to collect blood for testing, will notify RN when resulted.
[2017-03-17 07:08] LABS: BASOPHILS 0.1 % (0-2); EOSINOPHILS 1.5 % (0-7); HEMOGLOBIN 12.1 g/dL (12-16); MCH 29.8 pg (26.0-34.0); MCHC 32.7 g/dL (31.0-37.0); MCV 91.1 fL (80.0-100.0); MEAN PLATELET VOLUME 8.6 fL (7.4-10.4); MONOCYTES 9.6 % (2-11); NEUTROPHILS 60.8 % (40-80); PLATELET COUNT 480 10x3/uL (130-400); RBC 4.06 10x6/uL (4.00-5.40); RDW 14.1 % (11.5-14.5); WBC 14.3 10x3/uL (4.8-10.8)
[2017-03-17 07:20] LABS: CALCIUM 8.2 mg/dL (8.5-10.1); CARBON DIOXIDE 26.9 mmol/L (21.0-32.0); CHLORIDE - SERUM 107 mmol/L (98-107); CREATININE - SERUM 0.6 mg/dL (0.6-1.3); GLUCOSE 94 mg/dL (74-106); SODIUM 140 mmol/L (136-145); eGFR NON AFRICAN AMERICAN > 90 mL/min (90-120)
[2017-03-17 07:22] LABS: CALC OSMOLALITY 279 mosm/kg (275-300); UREA NITROGEN 16 mg/dL (7-18)
--- NOTE | 2017-03-17 07:30 | NUR ---
Report recieved from car shifter nurse. Pt resting in bed quietly with eyes closed. Resp even and unlabored. vss. Shift assessment complete per flowsheet. Refer for details. Call light in reach. Bed in low position. Will cont to assess.
--- NOTE | 2017-03-17 09:30 | NUR ---
SANTHOSH Reynolds at bedside to pull TPM wires. Pt tolerated well.
[2017-03-17] MEDS ORDERED: IPRAT-ALBUT 0.5-3 ML UPD (10:36)
[2017-03-17] MEDS ORDERED: PREDNISONE10 MG PO (10:39)
[2017-03-17] MEDS ORDERED: BREO ELLIPTA 21 EACH IH (10:41)
[2017-03-17] MEDS ORDERED: HEMOCYTE PLUS C1 CAP NG (10:42)
[2017-03-17] MEDS ORDERED: CORDARONE200 MG PO (10:42)
[2017-03-17] MEDS ORDERED: LOPRESSOR25 MG PO (10:43)
--- NOTE | 2017-03-17 12:30 | NUR ---
D/C INSTRUCTIONS REVIEWED WITH PT. DENIES NEEDS QUESTIONS. VERBALIZES UNDERSTANDING. PAPERWORK SIGNED. IV TO R FA REMOVED AND CATH WAS INTACT.
--- NOTE | 2017-03-17 13:04 | NUR ---
Patient Name: EMERSON TUTTLE Encounter No: [id number] : 1965 Primary Insurance: [employer] P[employer] M[employer] Anticipated DC Date: 03-17-2017 Planned Disposition: Home External Planned Provider: [facility] follow-up note: Anticipate DC this afternoon. Rec'd home nebulizer order - faxed to [facility] for home delivery. Offered home health services - patient declines at this time. No other needs identified or verbalized at this time.
--- NOTE | 2017-03-17 14:48 | NUR ---
PC to Bill with [facility] ([phone]) - He states they have submitted home nebulizer order to insurance company for approval. He states when they get authorization, they will deliver to the home this afternoon.
--- NOTE | 2017-03-17 15:03 | NUR ---
* Is the patient Alert and Oriented? Yes 0 * How many steps to enter\exit or inside your home? 1 0 * PCP Dr. Nance 0 * [facility] 0 * Preadmission Environment Home Alone 0 * ADLs Independent 0 * List name and contact numbers for known caregivers / representatives who currently or will assist patient after discharge: Friend - Paula Rivas [phone] 0 * Additional services required to return to the preadmission environment? No 0 * Can the patient safely return to the preadmission environment? Yes 0 * Has this patient been hospitalized within the prior 30 days at any hospital? No Patient Name: TARA LORENZO Admission Status: Elective Accout number: [id number] Admission Date: 03-13-2017 : 09-03-1946 Admission Diagnosis: Attending: KATIA LEROY Current LOS: 4 Anticipated DC Date: 03-20-2017 Planned Disposition: Home Primary Insurance: MEDICARE A & B Discharge Planning Comments: CM met with patient to assess dc plans/needs. Patient states she lives alone & is independent with all ADL's & IADL's. She has made arrangements for her friend, Puala Rivas, to stay with her after discharge. She denies home health services or using any DME at home. She has arranged for a house keeper to assist her at home as well. Her friend Paula plans to belt picker a BSC at the [facility] to have on hand should she need it. No other needs identified or verbalized at this time. CM will follow. Bus Girl: Catherine Jackson
--- NOTE | 2017-03-17 16:50 | OP ---
PATIENT NAME: EMERSON TUTTLE MEDICAL RECORD: [id number] :[birth year] LOCATION:[facility] ADMISSION DATE:02/26/17 SURGEON: VANESSA PRUITT MD DATE OF OPERATION: 03/03/2017 INDICATION: Ms. Tuttle is a 51-year-old female, who has underwent CABG. Now, she has bilateral pneumonia and the patient on mechanical ventilation. Fiberoptic bronchoscopy was carried out to inspect the airway as well as to obtain specimen for culture and sensitivity. MONITORING: EKG plus blood pressure and SpO2 were monitored throughout the procedure. MEDICATIONS: The patient is already sedated, but she was bolused with a 4 cc of Diprivan and she got 2 mg of Ativan IV. PROCEDURE IN DETAIL: A fiberoptic bronchoscope was easily passed through the ET tube. The alix was sharp. There were no copious secretions. There were some bronchitic changes bilaterally. The left main bronchus, the subsegment to the left upper lobe, and left lower lobe were within normal range. No endobronchial lesion was seen. No copious secretion was seen. The right main bronchus subsegment to the right upper lobe, right middle lobe, and right lower lobe within normal range. No endobronchial lesion was seen. There were no copious secretions. There are some bronchitic changes, it bled easily by touching by the bronchoscope. Specimen washing was obtained and sent for routine culture and sensitivity, AFB and fungus as well as cytology. Overall, the patient tolerated the procedure very well. TRANSINT:[id number] Voice Confirmation ID: [id number] DOCUMENT ID: [id number] VANESSA PRUITT MD at 1650 CC: [id number] DICTATION DATE: 03/03/17 1137 FAMILY ASSISTANT: 03/03/17 1200 DIS IN 03/17/17 [id number] [place] [address]
== END 2017-03-17 13:46 | disposition home or self-care (01) | DRG 233 ==
LOC: D.ER 12:56 → D.M2 16:13 → OBSVTIME 16:13 → D.CVICU 02-26 13:16 → D.M2 02-26 13:16 → D.CVICU 02-26 14:50
PROVIDERS: Emergency Medicine; Internal Medicine Cardiovascular Disease; Internal Medicine Pulmonary Disease; ADMIT Internal Medicine Cardiovascular Disease
PROC: 02100ZC Bypass Coronary Artery, One Artery from Thoracic Artery, Open Approach (ICD-10-PCS; 2017-02-26)
PROC: B2151ZZ Fluoroscopy of Left Heart using Low Osmolar Contrast (ICD-10-PCS; 2017-02-26)
PROC: 4A023N7 Measurement of Cardiac Sampling and Pressure, Left Heart, Percutaneous Approach (ICD-10-PCS; 2017-02-26)
PROC: B2111ZZ Fluoroscopy of Multiple Coronary Arteries using Low Osmolar Contrast (ICD-10-PCS; principal; 2017-02-26 10:00)
PROC: 0BH17EZ Insertion of Endotracheal Airway into Trachea, Via Natural or Artificial Opening (ICD-10-PCS; principal; 2017-02-26 10:00)
PROC: 5A1221Z Performance of Cardiac Output, Continuous (ICD-10-PCS; 2017-02-27)
PROC: B245ZZ4 Ultrasonography of Left Heart, Transesophageal (ICD-10-PCS; 2017-02-27)
PROC: 5A09457 Assistance with Respiratory Ventilation, 24-96 Consecutive Hours, Continuous Positive Airway Pressure (ICD-10-PCS; 2017-03-01)
PROC: 0T9B70Z Drainage of Bladder with Drainage Device, Via Natural or Artificial Opening (ICD-10-PCS; 2017-03-02)
PROC: 0BH17EZ Insertion of Endotracheal Airway into Trachea, Via Natural or Artificial Opening (ICD-10-PCS; 2017-03-02)
PROC: 5A1955Z Respiratory Ventilation, Greater than 96 Consecutive Hours (ICD-10-PCS; 2017-03-02)
PROC: 021109W Bypass Coronary Artery, Two Arteries from Aorta with Autologous Venous Tissue, Open Approach (ICD-10-PCS; 2017-03-03)
PROC: 0BB78ZX Excision of Left Main Bronchus, Via Natural or Artificial Opening Endoscopic, Diagnostic (ICD-10-PCS; 2017-03-03)
PROC: 06BP0ZZ Excision of Right Saphenous Vein, Open Approach (ICD-10-PCS; 2017-03-03)
PROC: 0BB38ZX Excision of Right Main Bronchus, Via Natural or Artificial Opening Endoscopic, Diagnostic (ICD-10-PCS; 2017-03-03)
PROC: 05HB33Z Insertion of Infusion Device into Right Basilic Vein, Percutaneous Approach (ICD-10-PCS; 2017-03-09)
PROC: B54MZZA Ultrasonography of Right Upper Extremity Veins, Guidance (ICD-10-PCS; 2017-03-09)
PROC: 0BJ08ZZ Inspection of Tracheobronchial Tree, Via Natural or Artificial Opening Endoscopic (ICD-10-PCS; 2017-03-13)
DX: I25.110 Atherosclerotic heart disease of native coronary artery with unstable angina pectoris (principal); J96.01 Acute respiratory failure with hypoxia; J15.6 Pneumonia due to other Gram-negative bacteria; J15.212 Pneumonia due to Methicillin resistant Staphylococcus aureus; D62 Acute posthemorrhagic anemia; I50.32 Chronic diastolic (congestive) heart failure; E78.00 Pure hypercholesterolemia, unspecified; Z78.1 Physical restraint status; I11.0 Hypertensive heart disease with heart failure; F17.200 Nicotine dependence, unspecified, uncomplicated; D69.6 Thrombocytopenia, unspecified; K21.9 Gastro-esophageal reflux disease without esophagitis; K59.00 Constipation, unspecified; E78.5 Hyperlipidemia, unspecified; F41.8 Other specified anxiety disorders

== ENCOUNTER 2017-03-21 03:36 | Emergency (ER) | payer MEDICARE ==
[2017-02-27 08:58] VITALS: BMI 32.2
[~2017-03-21 03:36] MED LIST changes: +BREO ELLIPTA 21 EACH IH; +CORDARONE200 MG PO; +HEMOCYTE PLUS C1 CAP NG; +IPRAT-ALBUT 0.5-3 ML UPD; +LOPRESSOR25 MG PO; +PREDNISONE10 MG PO
[2017-03-21 04:13] LABS: BASOPHILS 0.1 % (0-2); EOSINOPHILS 2.7 % (0-7); HEMATOCRIT 32.5 % (36.0-48.0); HEMOGLOBIN 10.8 g/dL (12-16); IMMATURE GRANULOCYTES 0.5 % (0-5); LYMPHOCYTES 31.4 % (15-50); MCH 29.4 pg (26.0-34.0); MCHC 33.2 g/dL (31.0-37.0); MCV 88.6 fL (80.0-100.0); MEAN PLATELET VOLUME 8.5 fL (7.4-10.4); MONOCYTES 5.9 % (2-11); NEUTROPHILS 59.4 % (40-80); RBC 3.67 10x6/uL (4.00-5.40); RDW 13.8 % (11.5-14.5); WBC 11.7 10x3/uL (4.8-10.8)
[2017-03-21 04:22] LABS: PLATELET COUNT 369 10x3/uL (130-400)
[2017-03-21 04:51] LABS: ALBUMIN 2.5 g/dL (3.4-5.0); ALKALINE PHOSPHATASE 67 U/L (46-116); ALT (SGPT) 27 U/L (10-68); BILIRUBIN - TOTAL 0.23 mg/dL (0.2-1.3); CALC OSMOLALITY 271 mosm/kg (275-300); CALCIUM 8.3 mg/dL (8.5-10.1); CARBON DIOXIDE 25.4 mmol/L (21.0-32.0); CHLORIDE - SERUM 104 mmol/L (98-107); CHOL - HDL RATIO 5.7 ratio (2.3-4.1); CHOLESTEROL, TOTAL 255 mg/dL (0-200); CKMB 0.4 U/L (0.0-3.6); CREATINE KINASE 28 UL (21-215); CREATININE - SERUM 0.5 mg/dL (0.6-1.3); GLUCOSE 104 mg/dL (74-106); HDL CHOLESTEROL 45 mg/dL (32-96); LDL CHOLESTEROL 189 mg/dL (0-100); LDL-HDL RATIO 4.2 ratio (1.5-3.5); PRO BNP 1609 pg/mL (0-125); PROTEIN - SERUM 5.6 g/dL (6.4-8.2); SODIUM 137 mmol/L (136-145); TRIGLYCERIDE 105 mg/dL (30-200); UREA NITROGEN 8 mg/dL (7-18); eGFR NON AFRICAN AMERICAN > 90 mL/min (90-120)
[2017-03-21 04:55] LABS: POTASSIUM - SERUM 2.6 mmol/L (3.5-5.1); TROPONIN-I 0.016 ng/mL (0.000-0.060)
== END 2017-03-21 06:50 | disposition home or self-care (01) ==
LOC: D.ER 03:36
PROVIDERS: Family Medicine
DX: R07.89 Other chest pain (principal); Z95.1 Presence of aortocoronary bypass graft; R79.1 Abnormal coagulation profile; J90 Pleural effusion, not elsewhere classified; I44.7 Left bundle-branch block, unspecified

== ENCOUNTER → 2017-04-09 12:58 | Outpatient (CLI) | payer MEDICARE ==
[2017-02-27 08:58] VITALS: BMI 32.2
[2017-04-09 13:39] LABS: HEMATOCRIT 40.4 % (36.0-48.0); HEMOGLOBIN 13.1 g/dL (12-16); MCH 29.4 pg (26.0-34.0); MCHC 32.4 g/dL (31.0-37.0); MCV 90.8 fL (80.0-100.0); MEAN PLATELET VOLUME 9.1 fL (7.4-10.4); RBC 4.45 10x6/uL (4.00-5.40); RDW 14.6 % (11.5-14.5); WBC 8.3 10x3/uL (4.8-10.8)
[2017-04-09 13:54] LABS: ALBUMIN 3.4 g/dL (3.4-5.0); ALKALINE PHOSPHATASE 128 U/L (46-116); ALT (SGPT) 25 U/L (10-68); BILIRUBIN - TOTAL 0.19 mg/dL (0.2-1.3); CALC OSMOLALITY 277 mosm/kg (275-300); CALCIUM 8.9 mg/dL (8.5-10.1); CARBON DIOXIDE 29.5 mmol/L (21.0-32.0); CHLORIDE - SERUM 104 mmol/L (98-107); CREATININE - SERUM 0.7 mg/dL (0.6-1.3); GLUCOSE 93 mg/dL (74-106); POTASSIUM - SERUM 4.1 mmol/L (3.5-5.1); PROTEIN - SERUM 6.8 g/dL (6.4-8.2); SODIUM 140 mmol/L (136-145); UREA NITROGEN 11 mg/dL (7-18); eGFR NON AFRICAN AMERICAN > 90 mL/min (90-120)
== END | disposition home or self-care (01) ==
LOC: D.LAB 09:00
PROVIDERS: Internal Medicine Cardiovascular Disease
DX: D64.9 Anemia, unspecified (principal); J91.8 Pleural effusion in other conditions classified elsewhere

== ENCOUNTER → 2017-06-09 16:52 | Outpatient (CLI) | payer MEDICARE ==
[2017-02-27 08:58] VITALS: BMI 32.2
[2017-06-09 19:12] LABS: ALT (SGPT) 18 U/L (10-68); CALC OSMOLALITY 281 mosm/kg (275-300); CALCIUM 9.2 mg/dL (8.5-10.1); CARBON DIOXIDE 31.1 mmol/L (21.0-32.0); CHLORIDE - SERUM 100 mmol/L (98-107); CHOL - HDL RATIO 5.1 ratio (2.3-4.1); CHOLESTEROL, TOTAL 236 mg/dL (0-200); CREATINE KINASE 51 UL (21-215); CREATININE - SERUM 0.7 mg/dL (0.6-1.3); GLUCOSE 85 mg/dL (74-106); HDL CHOLESTEROL 46 mg/dL (32-96); LDL CHOLESTEROL 142 mg/dL (0-100); LDL-HDL RATIO 3.1 ratio (1.5-3.5); POTASSIUM - SERUM 4.2 mmol/L (3.5-5.1); SODIUM 141 mmol/L (136-145); TRIGLYCERIDE 241 mg/dL (30-200); UREA NITROGEN 18 mg/dL (7-18); eGFR NON AFRICAN AMERICAN > 90 mL/min (90-120)
== END | disposition home or self-care (01) ==
LOC: D.LABREF 16:52
PROVIDERS: Internal Medicine Cardiovascular Disease
DX: E78.5 Hyperlipidemia, unspecified (principal); I10 Essential (primary) hypertension

== ENCOUNTER → 2017-07-07 17:00 | Outpatient (CLI) | payer MEDICARE ==
[2017-02-27 08:58] VITALS: BMI 32.2
[2017-07-07 19:19] LABS: % SATURATION 19 % (15-55); IRON 80 ug/dl (35-150); TOTAL IRON BIND CAPACITY 410 ug/dl (260-445); UNSAT IRON BIND CAPACITY 330 ug/dl (150-375)
[2017-07-07 19:48] LABS: T4 THYROXIN - FREE 0.82 ng/dL (0.76-1.46); T4 THYROXINE 8.2 ug/dL (4.7-13.3); THYROID STIMULATING HORMONE 3.01 uIU/mL (0.36-3.74)
== END | disposition home or self-care (01) ==
LOC: D.LABREF 17:00
PROVIDERS: Internal Medicine Cardiovascular Disease
DX: I25.10 Atherosclerotic heart disease of native coronary artery without angina pectoris (principal); I10 Essential (primary) hypertension

== ENCOUNTER → 2017-09-04 10:34 | Outpatient (CLI) | payer MEDICARE ==
[2017-02-27 08:58] VITALS: BMI 32.2
== END | disposition home or self-care (01) ==
LOC: D.RT 10:34
DX: J18.9 Pneumonia, unspecified organism (principal)

== ENCOUNTER → 2020-02-09 08:14 | Outpatient (CLI) | payer MEDICARE ==
[2017-02-27 08:58] VITALS: BMI 32.2
--- NOTE | ~2020-02-09 | EC ---
PATIENT:EMERSON TUTTLE DATE OF SERVICE: 02/09/20 SEX: F MEDICAL RECORD: [id number] DATE OF : 65 LOCATION:D[facility] AGE OF PATIENT: 54 ADMISSION DATE: 02/09/20 REFERRING PHYSICIAN: INTERPRETING PHYSICIAN: GEOVANNA SRIVASTAVA MD ECHOCARDIOGRAM REPORT ECHO CHARGES 4 ECHO COMPLETE Date: 02/09/20 CLINICAL DIAGNOSIS: CAD/ASSESS EF AND VALVES HX OF CABG ECHOCARDIOGRAPHIC MEASUREMENTS (adult normal given) AC root (d.<3.7cm) 2.9 cm LV Septum d (<1.2 cm> 1.4 cm Valve Excursion 1.3 cm LV Septum (systole) 1.5 cm Left Atria (s.<4.0cm> 3.9 cm LVPW d(<1.2cm) 1.4 cm RV (d.<2.3cm) 3.6 cm LVPW (sytole) 1.7 cm LV diastole(<5.6CM) 5.4 cm MV E-F(>70mm/sec) cm LV systole 3.5 cm LVOT Diameter 1.5 cm MV exc.(>10mm) 1.2 cm Est.ejection fraction (50-75%) % DOPPLER: LVIT cm/sec A 96.0 cm/sec E 104.0 cm/sec LA cm/sec RVSP 24 mmHg LVOT 109 cm/sec AOP1/2T m/s Asc. Ao 155 cm/sec RVOT 63 cm/sec RA cm/sec PA 113 cm/sec AV Gradient Peak 9.66 mmHg AV Mean 5.25 mmHg AV Area 1.5 cm MV Gradient Peak 6.89 mmHg MV Mean 2.54 mmHg MV Area cm COMMENTS: Mail Messenger: 2 CAROLINE PETE Public Health Professor: 3 Dr. Harden TAPE# PACS Pericardial Effusion N DATE OF SERVICE: Adequate 2D, color flow imaging, spectral Doppler, and M-Mode. LVH is present. LV internal dimension is normal. Wall motion is normal. EF is greater than or equal to 55%. Aortic valve is tricuspid. No evidence of stenosis by Doppler interrogation. Left atrium is normal at 3.9 cm. Mitral valve shows no prolapse. Trace MR. Right-sided chambers are grossly normal. Trace TR. TRANSINT:[id number] Voice Confirmation ID: [id number] DOCUMENT ID: [id number] ECHOCARDIOGRAM REPORT [id number] EMERSON TUTTLE GREGORY A MD CC: [id number] DICTATION DATE: 02/13/20 1023 TELECOMMUNICATION OPERATOR: 02/13/202032 DEP CLI 02/09/20 [place] [id number] [place] [id number]
== END | disposition home or self-care (01) ==
LOC: D.HCCECHO 01-09 13:30
PROVIDERS: ATTEND Internal Medicine Interventional Cardiology
DX: I25.10 Atherosclerotic heart disease of native coronary artery without angina pectoris (principal)